=== PATIENT | female | born 1940 | race Two or more races ===

== ENCOUNTER 2022-07-03 12:21 | Inpatient (IN) | payer OTHER ==
[2022-07-03] VITALS (12 sets, daily range): BP systolic 95–144; BP diastolic 40–67
[~2022-07-03] VITALS: Ht 167.6 cm; Wt 77.6 kg
--- NOTE | 2022-07-03 12:25 | NUR ---
[id number] found unresponsive, pulseless. CPR initiated well logging mud analysis captain per report. PLACED IN BED, NOT RESPONDING TO VERBAL-PAINFUL STIMULI, MD AT BEDSIDE FOR EVAL. RESP. TECH AT BEDSIDE ATTACHED TO VENTILATOR WITH SETTING AC/VC FIO2-100%, VT-500, RATE-16, PEEP-5 SATURATING TAT 100%.
[2022-07-03] MEDS ORDERED: NALOXONE PREFILLED SYRINGE 2 MG/2 ML SYRINGE ONE (12:26)
--- NOTE | 2022-07-03 12:29 | NUR ---
narcan 2mg given ivp per dr culver verbal order.
[2022-07-03] MEDS ORDERED: IV NS 0.9% 1,000 ML BAG IV ONE (12:30)
--- NOTE | 2022-07-03 12:44 | NUR ---
[employer] at bedside
--- NOTE | 2022-07-03 12:46 | NUR ---
MOVE SHEET SUBMITTED.
[2022-07-03] MEDS ORDERED: NALOXONE PREFILLED SYRINGE 2 MG/2 ML SYRINGE IV ONE (13:00)
[2022-07-03 13:04] LABS: BASOPHILS % (AUTO) 0.3 % (0.0-2.0); EOSINOPHILS % (AUTO) 1.9 % (0.0-6.0); HEMATOCRIT 30 % (33-45); HEMOGLOBIN 9.3 g/dL (11.5-14.8); LYMPHOCYTES # (AUTO) 2.4 K/uL (0.8-4.8); LYMPHOCYTES % (AUTO) 24.3 % (20.0-44.0); MEAN CORPUSCULAR HGB CONC 31 g/dl (31.0-36.0); MEAN CORPUSCULAR VOLUME 91 fL (82-100); MONOCYTES # (AUTO) 0.4 K/uL (0.1-1.30); MONOCYTES % (AUTO) 3.9 % (2.0-12.0); NEUTROPHILS # (AUTO) 6.8 K/uL (1.8-8.9); NEUTROPHILS % (AUTO) 69.6 % (43.0-81.0); PLATELET COUNT (AUTO) 327 K/uL (150-450); RED BLOOD CELL COUNT(AUTO) 3.28 MIL/uL (4.0-5.2); WHITE BLOOD COUNT (AUTO) 9.7 K/uL (4.3-11.0)
[2022-07-03 13:16] LABS: SERUM AMMONIA 50 umol/L (11-32)
[2022-07-03 13:19] LABS: CARBON DIOXIDE 29 mmol/L (21-32); CHLORIDE 104 mmol/L (98-107); CREATININE 0.8 mg/dL (0.6-1.3); GLUCOSE 169 mg/dL (74-106); POTASSIUM 4.4 mmol/L (3.5-5.1); SODIUM SERUM 140 mmol/L (136-145); UREA NITROGEN, BLOOD 24 mg/dL (7-18)
--- NOTE | 2022-07-03 13:19 | NUR ---
PATIENT CAME IN BEEN BAGGED BY THE EMERGENCY UNIT WITH SOB. PATIENT IS PLACED ON THE VENTILATOR WITH SETTINGS OF AC 16, 500, 100%, +5 PER DOCTOR ORDER. PATIENT CAME IN WITH TRACH AND IN PLACE. Addendum: 07/03/22 at 1324 by ZAIRA BLANCO RT Amended: Links added.
--- NOTE | 2022-07-03 13:24 | NUR ---
TROP 229
[2022-07-03 13:26] LABS: ALANINE AMINOTRANSFERASE 111 U/L (12-78); ALBUMIN 1.5 g/dL (3.4-5.0); ALKALINE PHOSPHATASE 219 U/L (46-116); ASPARTATE AMINOTRANSFERASE 122 U/L (15-37); BILIRUBIN,DIRECT 0.2 mg/dL (0.0-0.2); BILIRUBIN,TOTAL 0.3 mg/dL (0.2-1.0); TOTAL PROTEIN, SERUM 5.9 g/dL (6.4-8.2)
[2022-07-03 13:27] LABS: ALCOHOL, BLOOD < 3 mg/dL (0-0)
[2022-07-03 13:29] LABS: THYROID STIMULATING HORMONE 1.544 uIU/mL (0.358-3.74)
--- NOTE | 2022-07-03 13:35 | NUR ---
URINE SAMPLE SENT TO LAB
--- NOTE | 2022-07-03 13:45 | NUR ---
Picc line RN eta [id number]
--- NOTE | 2022-07-03 13:55 | NUR ---
SWAB FOR COVID19 SENT TO LAB
[2022-07-03 14:00] LABS: ABG BASE EXCESS 4.6 mmol/L; ABG PCO2 41.9 mmHg (35.0-45.0); ABG PH 7.456 (7.350-7.450); ABG PO2 324.4 mmHg (75.0-100.0); COHb 0.3 % (0.5-1.5); MetHb 0.3 % (0.0-1.5); O2Hb 98.8 % (94.0-97.0); PEEP,BG 5 cm H2O; SITE, ABG Left Radial; VT, ABG 500 mL
--- NOTE | 2022-07-03 14:08 | NUR ---
BILLIE FROM [facility] [phone]
[2022-07-03] MEDS ORDERED: NOREPINEPHRINE 8 MG in IV NS 0.9% 242 ML IV PRN (14:30)
[2022-07-03] MEDS ORDERED: IV NS 0.9% 500 ML BAG IV ONE (14:30)
[2022-07-03 14:31] LABS: BILIRUBIN,URINE NEGATIVE (NEGATIVE); COLOR,URINE YELLOW (YELLOW); LEUKOCYTE ESTERASE ,URINE 3+ (NEGATIVE); NITRITE, URINE NEGATIVE (NEGATIVE); PROTEIN,URINE 1+ mg/dl (NEGATIVE); UGLUCOSE NEGATIVE (NEGATIVE); UROBILINOGEN,URINE 0.2 EU/dL (0.2)
[2022-07-03] MEDS ORDERED: VANCOMYCIN 1 GM in IV D5W 250 ML IV ONE (15:30)
[2022-07-03] MEDS ORDERED: CEFEPIME 1 GM in IV D5W 50 ML IV ONE (15:30)
[2022-07-03 15:40] LABS: RBC,URINE 51-80 /HPF (0-2)
--- NOTE | 2022-07-03 15:40 | NUR ---
GOT BED 253
[2022-07-03 15:42] LABS: BACTERIA,URINE 3+ /HPF (None Seen); FINE GRANULAR CASTS,URINE Few /LPF (None Seen); SQUAMOUS EPITHELIAL CELL,UR 0-2 /HPF (None Seen); WBC,URINE 81-100 /HPF (0-3); YEAST,URINE Many /HPF (None Seen)
--- NOTE | 2022-07-03 16:50 | NUR ---
REPORT GIVEN TO AUGUSTINE RN ROOM 253 ICU FOR LELA
[2022-07-03] MEDS ORDERED: Z GUARD REMEDY 4 OZ OINT TP PRN (17:00)
[2022-07-03] MEDS ORDERED: MAGNESIUM HYDROXIDE 30 ML UDC PO PRN (17:00)
[2022-07-03] MEDS ORDERED: MAG HYDROX/AL HYDROX/SIMETH 30 ML UDC PO PRN (17:00)
[2022-07-03] MEDS ORDERED: ZOLPIDEM TARTRATE 5 MG TABLET PO PRN (17:00)
[2022-07-03] MEDS ORDERED: ACETAMINOPHEN 325 MG TABLET PO PRN (17:00)
[2022-07-03] MEDS ORDERED: ONDANSETRON HCL/PF 4 MG/2 ML VIAL IVP PRN (17:00)
[2022-07-03] MEDS: IV NS 0.9% 1,000 ML IV PRN (17:24)
[2022-07-03] MEDS: ENOXAPARIN SODIUM 40 MG/0.4 ML DISP.SYRIN SQ SCH (17:24)
--- NOTE | 2022-07-03 18:00 | NUR ---
PT ARRIVED IN ICU TO ROOM 253 FROM ER AT 1702 VIA GURNEY. PT SETTLED IN ROOM. WOUND PICS TAKEN. PT IS OBTUNDED, EYES OPEN NOT TRACKING OR FOLLOWING COMMANDS.
[2022-07-03] MEDS: NOREPINEPHRINE 8 MG in IV NS 0.9% 242 ML IV PRN (18:20)
[2022-07-03] MEDS ORDERED: PHARMACY TO CHANGE PO MEDS TO GT/NG XX PRN (18:30)
--- NOTE | 2022-07-03 18:31 | NUR ---
ICU/RN CRITICAL LAB VALUE OF TROPONIN 497 REPORTED TO PRIMARY RN YUMI.
[2022-07-03] MEDS ORDERED: FLUCONAZOLE IN NS 100 ML IV ONE (21:50)
[2022-07-03] MEDS: FLUCONAZOLE IN NS 100 MG in PREMIX 1 EA IV SCH ×2 (22:00)
[2022-07-04] VITALS (25 sets, daily range): BP systolic 98–157; BP diastolic 40–99
[2022-07-04] MEDS: IV NS 0.9% 1,000 ML IV PRN ×3 (02:03→18:40)
[2022-07-04] MEDS: CEFEPIME 2 GM in IV D5W 100 ML IV SCH ×2 (04:00→15:14)
[2022-07-04 05:05] LABS: BASOPHILS % (AUTO) 0.1 % (0.0-2.0); HEMATOCRIT 26 % (33-45); HEMOGLOBIN 8.2 g/dL (11.5-14.8); LYMPHOCYTES # (AUTO) 1.4 K/uL (0.8-4.8); LYMPHOCYTES % (AUTO) 15.5 % (20.0-44.0); MEAN CORPUSCULAR HGB CONC 32 g/dl (31.0-36.0); MEAN CORPUSCULAR VOLUME 89 fL (82-100); MONOCYTES # (AUTO) 0.3 K/uL (0.1-1.30); MONOCYTES % (AUTO) 3.3 % (2.0-12.0); NEUTROPHILS # (AUTO) 7.2 K/uL (1.8-8.9); NEUTROPHILS % (AUTO) 81.1 % (43.0-81.0); PLATELET COUNT (AUTO) 316 K/uL (150-450); RED BLOOD CELL COUNT(AUTO) 2.86 MIL/uL (4.0-5.2); WHITE BLOOD COUNT (AUTO) 8.9 K/uL (4.3-11.0)
[2022-07-04 05:28] LABS: ALANINE AMINOTRANSFERASE 83 U/L (12-78); ALKALINE PHOSPHATASE 167 U/L (46-116); ASPARTATE AMINOTRANSFERASE 66 U/L (15-37); BILIRUBIN,DIRECT 0.2 mg/dL (0.0-0.2); BILIRUBIN,TOTAL 0.3 mg/dL (0.2-1.0); CALCIUM, SERUM 7.7 mg/dL (8.5-10.1); CARBON DIOXIDE 28 mmol/L (21-32); CHLORIDE 107 mmol/L (98-107); CREATININE 0.4 mg/dL (0.6-1.3); GLUCOSE 115 mg/dL (74-106); MAGNESIUM 1.9 mg/dL (1.8-2.4); PHOSPHORUS 3.3 mg/dL (2.5-4.9); SODIUM SERUM 141 mmol/L (136-145); TOTAL PROTEIN, SERUM 5.2 g/dL (6.4-8.2); UREA NITROGEN, BLOOD 22 mg/dL (7-18)
[2022-07-04 05:41] LABS: ALBUMIN 1.3 g/dL (3.4-5.0)
[2022-07-04] MEDS ORDERED: PANTOPRAZOLE 40 MG TABLET.DR PO SCH (07:30)
--- NOTE | 2022-07-04 07:30 | NUR ---
RN OPENING NOTE PT RECEIVED IN BED AND ON MECHANICAL VENT WITH ALL PRESCRIBED SETTINGS TOLERATING WELL O2 SAT 100% NO SIGNS OF DISTRESS OR LABORED BREATHING. PT IS OBTUNDED WITH EYES OPEN AND DOES NOT TRACK. PEG TUBE IS IN PLACE CLAMED AT THIS TIME. FC IS IN PLACE WITH URINE DRAINING TO GRAVITY: ETHEL COLORED. PT IS NPO AT THIS TIME. IV ACCESS R UA PICC TL AND R W 20G INFUSING WITH NS@125ML/HR. BED IS LOCKED IN LOWEST POSITION X2 BED RAILS UP AND ALL HOSPITAL SAFETY MEASURES ARE IN PLACE WILL CONTINUE TO MONITOR THIS SHIFT.
[2022-07-04] MEDS: PANTOPRAZOLE 40 MG/PACK PACK GT SCH (07:59)
[2022-07-04] MEDS: POTASSIUM CL. PREMIX PERIPHER. 50 ML IV SCH ×6 (07:59→13:17)
[2022-07-04] MEDS ORDERED: POLY15DR40 EACHEYE (08:20)
[2022-07-04] MEDS ORDERED: PHOS250T2 GT (08:20)
[2022-07-04] MEDS ORDERED: ACET650S26 GT (08:20)
[2022-07-04] MEDS ORDERED: ACET-2605 GT (08:20)
[2022-07-04] MEDS ORDERED: APIX2.5T GT (08:20)
[2022-07-04] MEDS ORDERED: DOCU-141 GT (08:20)
[2022-07-04] MEDS ORDERED: PANT40SU2 GT (08:20)
[2022-07-04] MEDS ORDERED: CHLO473M5 MM (08:20)
[2022-07-04] MEDS ORDERED: NA P133E RC (08:20)
[2022-07-04] MEDS ORDERED: IPRA4AER IH (08:20)
[2022-07-04] MEDS ORDERED: LORA-259 GT (08:20)
[2022-07-04] MEDS ORDERED: BISA10SU11 RC (08:20)
[2022-07-04] MEDS ORDERED: MENT71OI2 TP (08:20)
[2022-07-04] MEDS ORDERED: GLUC1KIT IM (08:20)
[2022-07-04] MEDS: IV NS 0.9% 250 ML IV PRN (09:09)
[2022-07-04 11:36] LABS: THYROID STIMULATING HORMONE 0.307 uIU/mL (0.358-3.74)
[2022-07-04] MEDS: VANCOMYCIN 1.25 GM in IV D5W 250 ML IV SCH (15:59)
[2022-07-04] MEDS: ENOXAPARIN SODIUM 40 MG/0.4 ML DISP.SYRIN SQ SCH (17:25)
--- NOTE | 2022-07-04 18:55 | NUR ---
RN CLOSING NOTE PT IN BED AND ON MECHANICAL VENT WITH ALL PRESCRIBED SETTINGS TOLERATING WELL O2 SAT 98% NO SIGNS OF DISTRESS OR LABORED BREATHING. PT IS OBTUNDED WITH EYES OPEN AND DOES NOT TRACK. PEG TUBE IS IN PLACE CLAMED AT THIS TIME. FC IS IN PLACE WITH URINE DRAINING TO GRAVITY: ETHEL COLORED -750ML. PT IS NPO AT THIS TIME. IV ACCESS R UA PICC TL AND R W 20G INFUSING WITH NS@125ML/HR. PT RECEIVED 60MEQ KCL REPLACEMENT THIS SHIFT. BED IS LOCKED IN LOWEST POSITION X2 BED RAILS UP AND ALL HOSPITAL SAFETY MEASURES ARE IN PLACE WILL ENDORSE TO SCIENTIST NURSE FOR LELA.
--- NOTE | 2022-07-04 19:48 | NUR ---
BALANCE WHEEL HAND FILER OPENING NOTES: RECEIVED PATIENT IN BED, OBTUNDED. ON TRACH TO MECHANICAL VENT SETTINGS: AC-16, TV- 500, FIO2-30%, PEEP-5. O2 SAT 94%. BREATHING EVEN AND UNLABORED. IV ACCESS R UA PICC AND RT WRIST 20G INTACT AND PATENT. INFUSING WITH NS@125ML/HR. GT TUBE IN PLACE CLAMPED AT THIS TIME. FERRERA CATHETER IN PLACE, DRAINING BY GRAVITY, NOTED ETHEL COLORED URINE. PT IS NPO EXCEPT MEDS AT THIS TIME. ALL SAFETY MEASURES IN PLACE. BED IN LOWEST POSITION AND LOCKED. SIDE RAILS UP X3. PLACE CALL LIGHT WITH IN REACH. WILL CONTINUE TO MONITOR
[2022-07-04] MEDS: FLUCONAZOLE IN NS 100 MG in PREMIX 1 EA IV SCH ×2 (20:08)
[2022-07-05] VITALS (78 sets, daily range): BP systolic 63–180; BP diastolic 35–103
[2022-07-05] MEDS: NOREPINEPHRINE 8 MG in IV NS 0.9% 242 ML IV PRN (01:38)
--- NOTE | 2022-07-05 01:52 | NUR ---
RN NOTES: PT'S BLOOD PRESSURE 63/35, PULSE-82. STARTED LEVOPHED AGAIN. PT TOLERATED WELL.
--- NOTE | 2022-07-05 02:20 | NUR ---
RN NOTES: PT'S BLOOD PRESSURE 71/41, PULSE- 91. LEVOPHED INCREASED TO 0.2 MCG/KG/MIN. WILL CONTINUE TO MONITOR
[2022-07-05] MEDS: IV NS 0.9% 1,000 ML IV PRN ×3 (03:13→21:45)
[2022-07-05] MEDS: CEFEPIME 2 GM in IV D5W 100 ML IV SCH (04:48)
[2022-07-05 04:50] LABS: BASOPHILS % (AUTO) 0.2 % (0.0-2.0); EOSINOPHILS % (AUTO) 2.7 % (0.0-6.0); HEMATOCRIT 28 % (33-45); HEMOGLOBIN 9.1 g/dL (11.5-14.8); LYMPHOCYTES # (AUTO) 1.1 K/uL (0.8-4.8); LYMPHOCYTES % (AUTO) 11.2 % (20.0-44.0); MEAN CORPUSCULAR HGB CONC 33 g/dl (31.0-36.0); MEAN CORPUSCULAR VOLUME 88 fL (82-100); MONOCYTES # (AUTO) 0.5 K/uL (0.1-1.30); MONOCYTES % (AUTO) 5.3 % (2.0-12.0); NEUTROPHILS # (AUTO) 7.6 K/uL (1.8-8.9); NEUTROPHILS % (AUTO) 80.6 % (43.0-81.0); PLATELET COUNT (AUTO) 391 K/uL (150-450); RED BLOOD CELL COUNT(AUTO) 3.16 MIL/uL (4.0-5.2); WHITE BLOOD COUNT (AUTO) 9.5 K/uL (4.3-11.0)
[2022-07-05 05:05] LABS: CALCIUM, SERUM 7.9 mg/dL (8.5-10.1); CARBON DIOXIDE 27 mmol/L (21-32); CHLORIDE 106 mmol/L (98-107); CREATININE 0.5 mg/dL (0.6-1.3); GLUCOSE 111 mg/dL (74-106); MAGNESIUM 1.6 mg/dL (1.8-2.4); POTASSIUM 3.2 mmol/L (3.5-5.1); SODIUM SERUM 139 mmol/L (136-145); UREA NITROGEN, BLOOD 16 mg/dL (7-18)
[2022-07-05] MEDS: IV NS 0.9% 250 ML IV PRN ×2 (06:43→22:30)
--- NOTE | 2022-07-05 06:52 | NUR ---
THERAPEUTIC ACTIVITIES SERVICES WORKER CLOSING NOTES: PATIENT IN BED, OBTUNDED. ON TRACH TO MECHANICAL VENT SETTINGS: AC-16, TV- 500, FIO2-50%, PEEP-5. O2 SAT 100%. IV ACCESS R UA PICC AND RT WRIST 20G INTACT AND PATENT. INFUSING WITH NS@125ML/HR AND LEVOPHED RUNNING AT 0.04 MCG/KG/MIN. PT TOLERATED WELL. GT TUBE IN PLACE CLAMPED. FERRERA CATHETER IN PLACE, DRAINING BY GRAVITY, ETHEL COLORED URINE NOTED. PT IS NPO EXCEPT MEDS. ALL DUE MEDS GIVEN ORDERED. ALL SAFETY MEASURES IN PLACE. BED IN LOWEST POSITION AND LOCKED. SIDE RAILS UP X3. PLACE CALL LIGHT WITH IN REACH. WILL ENDORSE TO MORNING SHIFT NURSE.
--- NOTE | 2022-07-05 07:05 | NUR ---
RN NOTES RECEIVED PATIENT ON BED, CONTINUOUS REPETITIVE FACIAL MOMENT NOTED , PT IS TRACH/ VENT DEPENDENT , TOLERATING VENT SETTING WELL, O2 SAT WNL, O2 SAT WNL, BREATHING EVEN AND UNLABORED. IV ACCESS R UA PICC AND RT WRIST 20G INTACT AND PATENT. INFUSING WITH NS@125ML/HR. GT TUBE IN PLACE CLAMPED AT THIS TIME. FERRERA CATHETER IN PLACE, DRAINING BY GRAVITY, NOTED ETHEL COLORED URINE. PT IS NPO EXCEPT MEDS AT THIS TIME. ALL SAFETY MEASURES IN PLACE. BED IN LOWEST POSITION AND LOCKED. SIDE RAILS UP X3. PLACE CALL LIGHT WITH IN REACH. WILL CONTINUE TO MONITOR
--- NOTE | 2022-07-05 07:16 | NUR ---
WOUND CARE CONSULT: PT PRESENTS WITH SACRAL SCARRING, REDNESS TO BUTTOCKS, ABDOMINAL CLOSED INCISIONS WITH JENNIE AND RETENTION SUTURES, LEFT BREAST RASH WITH MOISTURE ASSOCIATED OPEN SKIN, PERINEAL RASH/REDNESS AND LONG TOENAILS, ALL PRESENT ON ADMISSION. DR CRUZ CALLED FOR SURGICAL CONSULT. DISCUSSED SKIN PROTECTION WITH NURSING STAFF. FIRST STEP LOW AIRLOSS MATTRESS IS ON ORDER. MD IN AGREEMENT WITH PLAN OF CARE. Addendum: 07/05/22 at 0722 by ROSANA SELF WNDNU Amended: Links added.
[2022-07-05] MEDS: CLOTRIMAZOLE 1% 15 GM TUBE TP SCH ×2 (08:05→16:43)
[2022-07-05] MEDS: PANTOPRAZOLE 40 MG/PACK PACK GT SCH (08:05)
--- NOTE | 2022-07-05 08:52 | NUR ---
fio2 titrate down to 30% spo2 96% Addendum: 07/05/22 at 0853 by SALVATORE STERN RT Amended: Links added.
[2022-07-05] MEDS ORDERED: POTASSIUM CHLORIDE 20 MEQ POWDER PACKET NG SCH (09:30)
[2022-07-05] MEDS: Magnesium 1GM/D5W 100ML PREMIX 100 ML IV SCH ×2 (09:43→10:51)
--- NOTE | 2022-07-05 10:33 | NUR ---
wayne parker Addendum: 07/05/22 at 1034 by SALVATORE STERN RT Amended: Links added.
--- NOTE | 2022-07-05 11:18 | NUR ---
fio2 increased to 40% due to 91 to 93% spo2 Addendum: 07/05/22 at 1118 by SALVATORE STERN RT Amended: Links added.
[2022-07-05] MEDS ORDERED: BISACODYL SUPP (10 MG) 10 MG/SUPP.RECT SUPP.RECT RC PRN (12:30)
[2022-07-05] MEDS ORDERED: K PHOS NEUTRAL 250 MG TABLET GT PRN (12:30)
[2022-07-05] MEDS ORDERED: ACETAMINOPHEN 650 MG/20.3 ML UDC GT PRN ×2 (12:30→13:00)
[2022-07-05] MEDS ORDERED: NA PHOS,M-B/NA PHOS,DI-BA 1 EA ENEMA RC PRN (12:30)
[2022-07-05] MEDS ORDERED: LORAZEPAM 1 MG TABLET GT PRN (12:30)
[2022-07-05] MEDS ORDERED: Medication Not On Formulary EA (Ipratropium/Albuterol Sulfate (Combivent Respimat 20-100 IH PRN (12:30)
[2022-07-05] MEDS ORDERED: MAGNESIUM HYDROXIDE 30 ML UDC GT PRN (12:48)
[2022-07-05] MEDS ORDERED: POLYVINYL ALCOHOL 15 ML BOTTLE EACHEYE PRN (13:00)
[2022-07-05] MEDS ORDERED: IPRATROPIUM NEB FS 0.5 MG/2.5 ML AMPUL.NEB IH PRN (13:00)
[2022-07-05] MEDS ORDERED: ALBUTEROL FS 2.5 MG/0.5 ML VIAL.NEB NEB PRN (13:00)
--- NOTE | 2022-07-05 14:30 | NUR ---
RN NOTES ESVIN ([facility] ) STATED HE HAS DOPA FOR PT AND , HE WILL FAX IT TO [facility] SOON HE GETS HOME. NO CONSENT FOR CONTRAST CT YET .
[2022-07-05] MEDS: MEROPENEM 500 MG in IV NS 0.9% 50 ML IV SCH ×2 (15:10→21:29)
[2022-07-05] MEDS ORDERED: LEVETIRACETAM (500MG) 2,000 MG in IV NS 0.9% 100 ML IV ONE (16:00)
--- NOTE | 2022-07-05 16:00 | NUR ---
RN NOTES CALL MADE TO ESVIN REGARDING DPOA DOCUMENT , HE STATED WE IS NOT HOME YET . HE WILL FAX IT SIMA
[2022-07-05] MEDS: APIXABAN 2.5 MG TABLET GT SCH (16:39)
[2022-07-05] MEDS: CHLORHEXIDINE GLUCONATE 15 ML UDC MM SCH (16:39)
[2022-07-05] MEDS: ENOXAPARIN SODIUM 40 MG/0.4 ML DISP.SYRIN SQ SCH (16:42)
[2022-07-05] MEDS: DOCUSATE SODIUM LIQ 100 MG/10 ML UDC GT SCH (17:42)
[2022-07-05] MEDS: VANCOMYCIN 1.25 GM in IV D5W 250 ML IV SCH (17:42)
--- NOTE | 2022-07-05 18:00 | NUR ---
RN NOTE FAXED RECEIVED FROM ESVIN THAT IS A RECEIPT OF SOME SORT OF DOCUMENT WHICH IS NOT DPOA DOCUMENT , HE SAID THIS IS A ONLY PAPER HE HAS. DR PARMAR NOTIFIED. UNABLE TO FINE ANY FAMILY MEMBER.
--- NOTE | 2022-07-05 18:55 | NUR ---
RN NOTES RADIOLOGY NOTIFED REGARDING CT OF HEAD THAT HAS TO BE DONE. NO CONSENT FOR CT OF ABD WITH CONTRAST YET , DR. PARMAR AWARE
--- NOTE | 2022-07-05 19:00 | NUR ---
MAGISTERIAL DISTRICT JUDGE RECEIVED PT IN BED ATTACHED TO [facility] VENT WITH FF SETTINGS: TRACH AC16 TV500 FI02 40% PEEP0. TOLERATING WELL. NO ACUTE DISTRESS. IV ACCESS AT RIGHT ARM PICC LINE, RIGHT WIST #20, PATENT AND INFUSING NS AT 125ML/H. WITH PEG-TUBE, CLAMPED. NPO EXCEPT MEDS. FERRERA CATH DRAINING CLEAR YELLOW URINE. NOTED ABD SURGERY INCISION WOUND AND PERIANAL AREA FISTULA. FOR CT HEAD WO CONTRAST AND CT ABDOMEN W/WO - NO CONSENT SIGNED. WILL CALL RADIOLOGY FOR CT OF THE HEAD. CHARGE NURSE MADE AWARE. SAFETY MEASURES MAINTAINED. TURNED AND REPOSITIONED. KEPT COMFORTABLE. WILL CONT TO MONITOR.
[2022-07-05] MEDS: FLUCONAZOLE IN NS 100 MG in PREMIX 1 EA IV SCH ×2 (20:04)
--- NOTE | 2022-07-05 21:00 | NUR ---
TELESALES SPECIALIST RECEIVED CALL FROM MAGUI (RADIOLOGY) RE CT OF HEAD WO CONTRAST AND ABDOMEN W/WO CONTRAST CLARIFIED TO BE DONE TOGETHER TOMORROW IN AM ONCE WITH CONSENT PER JUAN ALLEN. INFORMED RADIOLOGY THAT CT OF THE HEAD WAS ORDERED STAT AND MUST BE DONE TONIGHT. CHARGE NURSE MADE AWARE. PATIENT WAS SENT DOWN TO RADIO FOR CT HEAD W/O CONTRAST WITH RN, ELECTRIC MOTORS SALESPERSON AND RT. TOLERATED PROC WELL. KEPT COMFORTABLE.
[2022-07-05] MEDS: LEVETIRACETAM (500MG) 1,000 MG in IV NS 0.9% 100 ML IV SCH (21:28)
[2022-07-06] VITALS (50 sets, daily range): BP systolic 106–160; BP diastolic 48–93
[2022-07-06 03:54] LABS: BASOPHILS % (AUTO) 0.3 % (0.0-2.0); EOSINOPHILS % (AUTO) 5.3 % (0.0-6.0); HEMATOCRIT 26 % (33-45); HEMOGLOBIN 8.5 g/dL (11.5-14.8); LYMPHOCYTES # (AUTO) 1.7 K/uL (0.8-4.8); MEAN CORPUSCULAR HGB CONC 33 g/dl (31.0-36.0); MEAN CORPUSCULAR VOLUME 88 fL (82-100); MONOCYTES # (AUTO) 0.5 K/uL (0.1-1.30); MONOCYTES % (AUTO) 6.7 % (2.0-12.0); NEUTROPHILS # (AUTO) 5.3 K/uL (1.8-8.9); NEUTROPHILS % (AUTO) 66.7 % (43.0-81.0); PLATELET COUNT (AUTO) 311 K/uL (150-450); WHITE BLOOD COUNT (AUTO) 7.9 K/uL (4.3-11.0)
[2022-07-06 04:27] LABS: CALCIUM, SERUM 7.8 mg/dL (8.5-10.1); CARBON DIOXIDE 26 mmol/L (21-32); CHLORIDE 107 mmol/L (98-107); CREATININE 0.5 mg/dL (0.6-1.3); GLUCOSE 91 mg/dL (74-106); MAGNESIUM 1.8 mg/dL (1.8-2.4); PHOSPHORUS 2.9 mg/dL (2.5-4.9); SODIUM SERUM 139 mmol/L (136-145); UREA NITROGEN, BLOOD 10 mg/dL (7-18)
[2022-07-06] MEDS: MEROPENEM 500 MG in IV NS 0.9% 50 ML IV SCH ×3 (05:14→20:38)
--- NOTE | 2022-07-06 07:03 | NUR ---
WOUND CARE: RECEIVED CONSULT FOR OPENING AT PERIANAL AREA. DEFER TO PMD FOR POSSIBLE GENERAL SURGERY CONSULT. CONTINUE ALL SKIN PROTECTION MEASURES. DISCUSSED WITH NURSING STAFF.
--- NOTE | 2022-07-06 07:05 | NUR ---
RN NOTES RECEIVED PATIENT ON BED, TRACH/ VENT DEPENDENT , TOLERATING VENT SETTING WELL, O2 SAT WNL, ON TELE HR IN LAYO 40'S, BREATHING EVEN AND UNLABORED. IV ACCESS R UA PICC AND RT WRIST 20G INTACT AND PATENT. INFUSING WITH NS@125ML/HR. GT TUBE IN PLACE CLAMPED AT THIS TIME. FERRERA CATHETER IN PLACE, DRAINING BY GRAVITY, NOTED ETHEL COLORED URINE. PT IS NPO EXCEPT MEDS AT THIS TIME. ALL SAFETY MEASURES IN PLACE. BED IN LOWEST POSITION AND LOCKED. SIDE RAILS UP X3. PLACE CALL LIGHT WITHIN EASY REACH. WILL CONTINUE TO MONITOR
[2022-07-06] MEDS: PANTOPRAZOLE 40 MG/PACK PACK GT SCH ×2 (08:35→08:38)
[2022-07-06] MEDS: CHLORHEXIDINE GLUCONATE 15 ML UDC MM SCH ×2 (08:35→16:09)
[2022-07-06] MEDS: APIXABAN 2.5 MG TABLET GT SCH ×2 (08:37→16:07)
[2022-07-06] MEDS: LEVETIRACETAM (500MG) 1,000 MG in IV NS 0.9% 100 ML IV SCH ×2 (08:38→20:38)
[2022-07-06] MEDS: CLOTRIMAZOLE 1% 15 GM TUBE TP SCH ×2 (08:39→16:10)
[2022-07-06] MEDS: IV NS 0.9% 1,000 ML IV PRN ×2 (08:49→17:32)
[2022-07-06] MEDS ORDERED: POTASSIUM CHLORIDE 20 MEQ POWDER PACKET GT SCH (09:30)
[2022-07-06] MEDS ORDERED: IOHEXOL-300 100 ML VIAL IV ONE (10:48)
[2022-07-06] MEDS ORDERED: IV NS 0.9% 250 ML IV ONE (10:49)
--- NOTE | 2022-07-06 14:57 | NUR ---
SS Note: CHANTALE was notified by Hayden from [facility] to fax clinicals including H&P, tox screen, COVID test taken within last 24 hrs, and medical clearance note for possible psychiatric admission. CHANTALE discussed this with pt.'s nurse, Vanesa. Vanesa stated she will relay information to SPORTS TEACHERKianna. CHANTALE will remain available as needed. Addendum: 07/06/22 at 1501 by JUANCARLOS KENYON Disregard note for different patient
--- NOTE | 2022-07-06 15:04 | NUR ---
SS note: CHANTALE received call from pt.s' nurseBrunilda who is requesting verification of decision maker for this patient to provide informed consent. CHANTALE called the pt.s' facility: [facility] [phone] and they stated that the pt.'s friend, Shahab [phone] and his son, Evan (who calls the pt. meka)are the only point of contact for patient. Facility states they have no conservatorship paperwork, advanced directive or POLST for this pt. CHANTALE called the pt.'s friend, Shahab [phone] to gather collateral information and left voicemail with call back number. Per nurse, Shahab has been asked to provide documents to [facility] which give him legal right to make medical decisions on behalf of pt. and he has been unable to provide such documents. Two medical doctors may consent to treatment if legal decision maker is not available and if it is a medical necessity. CHANTALE discussed with nurseBrunilda.
[2022-07-06] MEDS: VANCOMYCIN 1.25 GM in IV D5W 250 ML IV SCH (16:05)
[2022-07-06] MEDS: ENOXAPARIN SODIUM 40 MG/0.4 ML DISP.SYRIN SQ SCH (16:10)
[2022-07-06] MEDS: DOCUSATE SODIUM LIQ 100 MG/10 ML UDC GT SCH (17:47)
--- NOTE | 2022-07-06 18:40 | NUR ---
RN NOTES TRACH CARE DONE PRN, TOLERATING VENT SETTING WELL, ON TELE SR HR IN 60'S, FERRERA DRAINING TO GRAVITY , IV SITE CDI, NS AT 125CC/HR RUNNING , SR UP x3, CALL LIGHT WITHIN EASY REACH, BED LOCKED AND IN LOWEST POSITION, WILL ENDORSE TO EQUINE INTERN NURSE FOR CONTINUITY OF CARE .
[2022-07-06] MEDS: FLUCONAZOLE IN NS 100 MG in PREMIX 1 EA IV SCH ×2 (19:19)
--- NOTE | 2022-07-06 21:30 | NUR ---
CLINICAL REGISTERED NURSE RECEIVED PT IN BED ON TRACH ATTACHED TO [facility] VENT WITH FF SETTINGS: AC16 TV500 FI02 30% PEEP0. TOLERATING WELL. NO ACUTE DISTRESS. IV ACCESS AT RIGHT ARM PICC LINE, PATENT AND INFUSING NS AT 125ML/H. WITH PEG-TUBE, CLAMPED. NPO EXCEPT MEDS. FERRERA CATH DRAINING ETHEL URINE. NOTED ABD SURGERY INCISION WOUND AND PERIANAL AREA FISTULA. SAFETY MEASURES MAINTAINED. TURNED AND REPOSITIONED. DUE MEDS GIVEN. KEPT COMFORTABLE. WILL CONT TO MONITOR.
[2022-07-07] VITALS (48 sets, daily range): BP systolic 116–159; BP diastolic 47–84
[2022-07-07] MEDS: IV NS 0.9% 1,000 ML IV PRN ×2 (04:54→12:21)
[2022-07-07] MEDS: MEROPENEM 500 MG in IV NS 0.9% 50 ML IV SCH ×3 (05:07→20:53)
[2022-07-07 05:28] LABS: CALCIUM, SERUM 7.9 mg/dL (8.5-10.1); CARBON DIOXIDE 24 mmol/L (21-32); CHLORIDE 108 mmol/L (98-107); CREATININE 0.5 mg/dL (0.6-1.3); GLUCOSE 82 mg/dL (74-106); POTASSIUM 3.1 mmol/L (3.5-5.1); SODIUM SERUM 139 mmol/L (136-145); UREA NITROGEN, BLOOD 10 mg/dL (7-18)
--- NOTE | 2022-07-07 06:16 | NUR ---
CASH VAN SALESPERSON NOTED HEMATURIA. ORDERED CBC STAT. CHARGE NURSE MADE AWARE
[2022-07-07 08:01] LABS: BASOPHILS # (AUTO) 0.1 K/uL (0.0-0.2); BASOPHILS % (AUTO) 0.5 % (0.0-2.0); EOSINOPHILS % (AUTO) 5.1 % (0.0-6.0); HEMATOCRIT 32 % (33-45); HEMOGLOBIN 10.2 g/dL (11.5-14.8); LYMPHOCYTES # (AUTO) 3.5 K/uL (0.8-4.8); LYMPHOCYTES % (AUTO) 35.6 % (20.0-44.0); MEAN CORPUSCULAR HGB CONC 32 g/dl (31.0-36.0); MEAN CORPUSCULAR VOLUME 89 fL (82-100); MONOCYTES % (AUTO) 9.7 % (2.0-12.0); NEUTROPHILS # (AUTO) 4.9 K/uL (1.8-8.9); NEUTROPHILS % (AUTO) 49.1 % (43.0-81.0); PLATELET COUNT (AUTO) 308 K/uL (150-450)
--- NOTE | 2022-07-07 08:15 | NUR ---
BEDSIDE REPORT GIVEN BY RNLENA DERAS FOR CONTINUITY OF CARE.
[2022-07-07] MEDS: CHLORHEXIDINE GLUCONATE 15 ML UDC MM SCH ×2 (09:05→16:17)
[2022-07-07] MEDS: PANTOPRAZOLE 40 MG/PACK PACK GT SCH (09:09)
[2022-07-07] MEDS: LEVETIRACETAM (500MG) 1,000 MG in IV NS 0.9% 100 ML IV SCH (09:10)
[2022-07-07] MEDS: POTASSIUM CHLORIDE 20 MEQ POWDER PACKET NG SCH ×5 (09:10→13:35)
[2022-07-07] MEDS: APIXABAN 2.5 MG TABLET GT SCH ×2 (09:14→16:19)
[2022-07-07] MEDS: CLOTRIMAZOLE 1% 15 GM TUBE TP SCH ×2 (09:37→16:17)
[2022-07-07] MEDS: IV NS 0.9% 250 ML IV PRN (09:39)
[2022-07-07] MEDS: IV D5/ 0.9% NACL 1,000 ML IV PRN (13:36)
[2022-07-07] MEDS ORDERED: MAG HYDROX/AL HYDROX/SIMETH 30 ML UDC GT PRN (13:59)
[2022-07-07] MEDS: VANCOMYCIN 1.25 GM in IV D5W 250 ML IV SCH (16:22)
--- NOTE | 2022-07-07 16:37 | NUR ---
DR DIAZ SEEN PT. NOW.
[2022-07-07] MEDS: DOCUSATE SODIUM LIQ 100 MG/10 ML UDC GT SCH (17:54)
[2022-07-07] MEDS: ENOXAPARIN SODIUM 40 MG/0.4 ML DISP.SYRIN SQ SCH (17:55)
[2022-07-07] MEDS: FLUCONAZOLE IN NS 100 MG in PREMIX 1 EA IV SCH ×2 (19:55)
[2022-07-07] MEDS: KEPPRA 1000 MG in IV NS 100 ML IV SCH (20:53)
[2022-07-07] MEDS ORDERED: LEVETIRACETAM (500MG) 1,000 MG in IV NS 0.9% 100 ML IV SCH (21:00)
[2022-07-08] VITALS (53 sets, daily range): BP systolic 113–157; BP diastolic 51–92
[2022-07-08] MEDS: IV D5/ 0.9% NACL 1,000 ML IV PRN ×3 (02:10→19:51)
[2022-07-08 04:04] LABS: CALCIUM, SERUM 7.8 mg/dL (8.5-10.1); CARBON DIOXIDE 23 mmol/L (21-32); CHLORIDE 108 mmol/L (98-107); CREATININE 0.5 mg/dL (0.6-1.3); GLUCOSE 109 mg/dL (74-106); POTASSIUM 3.3 mmol/L (3.5-5.1); SODIUM SERUM 140 mmol/L (136-145); UREA NITROGEN, BLOOD 8 mg/dL (7-18)
[2022-07-08] MEDS: MEROPENEM 500 MG in IV NS 0.9% 50 ML IV SCH ×3 (05:19→21:38)
[2022-07-08] MEDS: IV NS 0.9% 250 ML IV PRN (05:31)
--- NOTE | 2022-07-08 06:35 | NUR ---
BOARD MACHINE SET UP OPERATOR PT IN BED ON TRACH ATTACHED TO [facility] VENT WITH FF SETTINGS: AC16 TV500 FI02 30% PEEP0. TOLERATING WELL. NO ACUTE DISTRESS. IV ACCESS AT RIGHT ARM PICC LINE, PATENT AND INFUSING D5NS AT 100ML/H. WITH PEG-TUBE, CLAMPED. NPO EXCEPT MEDS. FERRERA CATH DRAINING RED COLORED URINE. NOTED ABD SURGERY INCISION WOUND AND PERIANAL AREA FISTULA. SAFETY MEASURES MAINTAINED. TURNED AND REPOSITIONED. DUE MEDS GIVEN. KEPT COMFORTABLE.
--- NOTE | 2022-07-08 07:10 | NUR ---
MARKETING SERVICES MANAGER OPENING NOTE: RECEIVED PT. IN BED, OBTUNDED, MOVES EYELIDS TO PAINFUL STIMULI. VENT/TRACH - SHILEY# 6 XLT; AC - 16; VT - 500; FIO2 - 30%; PEEP - 0. NO S/S OF RESPIRATORY DISTRESS HORIZONTAL BORING MILL OPERATOR READS SINUS WES AT THIS TIME. BP STABLE. NOTED TO HAVE MIDLINE ABDOMINAL INCISION WITH JENNIE, WOUND C/D/I. 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 HOSPITALIST AWARE, WAITING FOR SURGICAL CONSULT. WILL DO WOUND TREATMENT/SKIN PRECAUTIONS ORDERED. HAS PEG TUBE, CLAMPED AT THIS TIME DUE TO PERIRECTAL FISTULA. NO GASTRIC RESIDUAL NOTED. HAS FERRERA CATH, DRAINING CLEAR YELLOW URINE, BAG BELOW BLADDER. IV ACCESS ON ISA PICC LINE, WITH D5 NS RUNNING AT 100 ML/HR. IV SITE DRESSING C/D/I WITH NO S/S OF INFILTRATION. SAFETY MEASURES IN PLACE: BED IN LOWEST AND LOCKED POSITION, HOB ELEVATED AT 30 DEGREES, BED ALARM ON, CALL LIGHT WITHIN REACH, SIDE RAILS UP X2. WILL TURN AND REPOSITION IN BED AT LEAST Q2H. WILL CONTINUE TO MONITOR PT. FOR ANY CHANGES.
[2022-07-08 07:42] LABS: BASOPHILS # (AUTO) 0.1 K/uL (0.0-0.2); BASOPHILS % (AUTO) 0.9 % (0.0-2.0); EOSINOPHILS % (AUTO) 6.8 % (0.0-6.0); HEMATOCRIT 30 % (33-45); HEMOGLOBIN 9.4 g/dL (11.5-14.8); LYMPHOCYTES # (AUTO) 1.8 K/uL (0.8-4.8); LYMPHOCYTES % (AUTO) 23.8 % (20.0-44.0); MEAN CORPUSCULAR HGB CONC 32 g/dl (31.0-36.0); MEAN CORPUSCULAR VOLUME 89 fL (82-100); MONOCYTES # (AUTO) 0.6 K/uL (0.1-1.30); MONOCYTES % (AUTO) 7.5 % (2.0-12.0); NEUTROPHILS # (AUTO) 4.5 K/uL (1.8-8.9); PLATELET COUNT (AUTO) 329 K/uL (150-450); RED BLOOD CELL COUNT(AUTO) 3.33 MIL/uL (4.0-5.2); WHITE BLOOD COUNT (AUTO) 7.4 K/uL (4.3-11.0)
[2022-07-08] MEDS ORDERED: ZOLPIDEM TARTRATE 5 MG TABLET GT PRN (07:45)
[2022-07-08] MEDS ORDERED: POTASSIUM CHLORIDE 20 MEQ POWDER PACKET GT ONE (08:00)
[2022-07-08] MEDS: CLOTRIMAZOLE 1% 15 GM TUBE TP SCH ×2 (09:36→17:55)
[2022-07-08] MEDS: APIXABAN 2.5 MG TABLET GT SCH ×2 (09:36→17:56)
[2022-07-08] MEDS: PANTOPRAZOLE 40 MG/PACK PACK GT SCH (09:36)
[2022-07-08] MEDS: CHLORHEXIDINE GLUCONATE 15 ML UDC MM SCH ×2 (09:37→17:55)
[2022-07-08] MEDS: LEVETIRACETAM (500MG) 500 MG in IV NS 0.9% 100 ML IV SCH (09:43)
[2022-07-08 10:34] LABS: IRON, SERUM 25 ug/dl (50-175); TOTAL IRON BINDING CAPACITY 141 ug/dl (250-450)
[2022-07-08 10:48] LABS: FERRITIN 174 ng/mL (8-388)
[2022-07-08] MEDS: VANCOMYCIN 1.25 GM in IV D5W 250 ML IV SCH (16:51)
[2022-07-08] MEDS: DOCUSATE SODIUM LIQ 100 MG/10 ML UDC GT SCH (17:55)
--- NOTE | 2022-07-08 19:10 | NUR ---
BUSINESS DATA ANALYST CLOSING NOTE: PT. REMAINS IN BED, OBTUNDED, MOVES EYELIDS TO PAINFUL STIMULI. VENT/TRACH - SHILEY# 6 XLT; AC - 16; VT - 500; FIO2 - 30%; PEEP - 0. NO S/S OF RESPIRATORY DISTRESS MAGNETO REPAIRER READS SINUS WES THIS SHIFT. BP STABLE. WOUND TREATMENT/SKIN PRECAUTIONS DONE ORDERED. STILL WAITING FOR SURGERY CONSULT. PEG TUBE STILL CLAMPED AT THIS TIME DUE TO PERIRECTAL FISTULA. NO GASTRIC RESIDUAL NOTED. FERRERA CATH DRAINED 1,600 ML CLEAR YELLOW URINE THIS SHIFT. IV ACCESS ON ISA PICC LINE, WITH D5 NS RUNNING AT 100 ML/HR. IV SITE DRESSING C/D/I WITH NO S/S OF INFILTRATION. SAFETY MEASURES MAINTAINED: BED IN LOWEST AND LOCKED POSITION, HOB ELEVATED AT 30 DEGREES, BED ALARM ON, CALL LIGHT WITHIN REACH, SIDE RAILS UP X2. TURNED AND REPOSITIONED IN BED AT LEAST Q2H. ENDORSED CONTINUITY OF CARE TO HEM MARKER NATALY MCGHEE.
[2022-07-08] MEDS: FLUCONAZOLE IN NS 100 MG in PREMIX 1 EA IV SCH ×2 (19:28)
--- NOTE | 2022-07-08 20:03 | NUR ---
RECEIVED PT TRACH ON VENT. NO RESP DISTRESS NOTED. SX'D SMALL AMT OF THIN WHITE SECRETIONS. PT HAS SILVERIO 6XLT TRACH. VENT ALARMS SET AND AUDIBLE. CONTINUE TO MONITOR. Addendum: 07/08/22 at 2004 by CHRISTY DOCKERY RT Amended: Links added.
--- NOTE | 2022-07-08 20:30 | NUR ---
ICU/SALES ACTIVITY MANAGER SURGEON MICKEY CAME TO SEE PT ABOUT ANAL FISTULA, PT DOES HAVE ONE. SAID TUESDAY, JAUNARY 30 IS GOOD FOR HIM. HE WAS CALLING PRIMARY DR TO SET THIS UP. NO NEW ORDERS WAS SEEN.
--- NOTE | 2022-07-08 20:45 | NUR ---
ICU/MATCHBOOK MAKER ID ALFREDO ROBLERO CAME TO SEE THIS PT, SPOKE TO HIM ABOUT STARTING FEEDING. SURGEON SAID OK TO START FEEDING. NO NEW ORDERS RECEIVED FROM ID ON THIS PT.
[2022-07-08] MEDS: KEPPRA 1000 MG in IV NS 100 ML IV SCH (21:05)
--- NOTE | 2022-07-08 21:40 | NUR ---
ICU/PUBLIC HEALTH INSPECTOR PT'S PHU CAME TO SEE PT, ASKED ABOUT UPDATES THEN TOLD HIME ABOUT THE SURGERY TO FIX THE FISTULA. ASKED IF HE WOULD SIGN THIS, HE SAID OK. PHU NAME IS ESVIN [phone], HOWEVER DR AREVALO DID NOT ASK FOR THE CONSENT.
[2022-07-09] VITALS (30 sets, daily range): BP systolic 112–155; BP diastolic 45–79
[2022-07-09] MEDS: MEROPENEM 500 MG in IV NS 0.9% 50 ML IV SCH ×3 (04:37→21:03)
[2022-07-09 04:48] LABS: CALCIUM, SERUM 7.8 mg/dL (8.5-10.1); CARBON DIOXIDE 23 mmol/L (21-32); CREATININE 0.5 mg/dL (0.6-1.3); GLUCOSE 106 mg/dL (74-106); UREA NITROGEN, BLOOD 7 mg/dL (7-18)
[2022-07-09 05:04] LABS: CHLORIDE 110 mmol/L (98-107); SODIUM SERUM 141 mmol/L (136-145)
[2022-07-09 05:28] LABS: POTASSIUM 2.8 mmol/L (3.5-5.1)
--- NOTE | 2022-07-09 06:37 | NUR ---
ICU/LABEL DRIER CALLED DAYTIME CAREGIVER KINZA MANY TIMES HOWEVER NO CALL BACK FOR CRITICAL LAB VALUE OF POTASSIUM 2.8
--- NOTE | 2022-07-09 07:10 | NUR ---
CLOTH PRINTING BACK TENDER OPENING NOTE: RECEIVED PT. IN BED, OBTUNDED, MOVES EYELIDS TO PAINFUL STIMULI. VENT/TRACH - SHILEY# 6 XLT; AC - 16; VT - 500; FIO2 - 30%; PEEP - 0. NO S/S OF RESPIRATORY DISTRESS NURSING ASSOCIATE READS SINUS WES AT THIS TIME. BP STABLE. NOTED TO HAVE MIDLINE ABDOMINAL INCISION WITH JENNIE, WOUND C/D/I. 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 SURGICAL CONSULT DONE BY DR. AREVALO LAST NIGHT. WILL DO WOUND TREATMENT/SKIN PRECAUTIONS ORDERED. HAS PEG TUBE, CLAMPED AT THIS TIME DUE TO PERIRECTAL FISTULA. NO GASTRIC RESIDUAL NOTED. HAS FERRERA CATH, DRAINING CLEAR YELLOW URINE, BAG BELOW BLADDER. IV ACCESS ON ISA PICC LINE, WITH D5 NS RUNNING AT 100 ML/HR. IV SITE DRESSING C/D/I WITH NO S/S OF INFILTRATION. SAFETY MEASURES IN PLACE: BED IN LOWEST AND LOCKED POSITION, HOB ELEVATED AT 30 DEGREES, BED ALARM ON, CALL LIGHT WITHIN REACH, SIDE RAILS UP X2. WILL TURN AND REPOSITION IN BED AT LEAST Q2H. WILL CONTINUE TO MONITOR PT. FOR ANY CHANGES.
[2022-07-09] MEDS: IV D5/ 0.9% NACL 1,000 ML IV PRN (07:12)
[2022-07-09 07:31] LABS: BASOPHILS % (AUTO) 0.4 % (0.0-2.0); EOSINOPHILS % (AUTO) 8.1 % (0.0-6.0); HEMATOCRIT 31 % (33-45); HEMOGLOBIN 9.9 g/dL (11.5-14.8); LYMPHOCYTES # (AUTO) 2.1 K/uL (0.8-4.8); LYMPHOCYTES % (AUTO) 26.9 % (20.0-44.0); MEAN CORPUSCULAR HGB CONC 32 g/dl (31.0-36.0); MEAN CORPUSCULAR VOLUME 88 fL (82-100); MONOCYTES # (AUTO) 0.5 K/uL (0.1-1.30); MONOCYTES % (AUTO) 6.5 % (2.0-12.0); NEUTROPHILS # (AUTO) 4.6 K/uL (1.8-8.9); NEUTROPHILS % (AUTO) 58.1 % (43.0-81.0); PLATELET COUNT (AUTO) 347 K/uL (150-450); RED BLOOD CELL COUNT(AUTO) 3.47 MIL/uL (4.0-5.2); WHITE BLOOD COUNT (AUTO) 7.9 K/uL (4.3-11.0)
[2022-07-09] MEDS: PANTOPRAZOLE 40 MG/PACK PACK GT SCH (09:02)
[2022-07-09] MEDS: POTASSIUM CHLORIDE 20 MEQ POWDER PACKET NG SCH ×6 (09:02→14:46)
[2022-07-09] MEDS: CHLORHEXIDINE GLUCONATE 15 ML UDC MM SCH ×2 (09:02→16:27)
[2022-07-09] MEDS: APIXABAN 2.5 MG TABLET GT SCH ×2 (09:03→17:00)
[2022-07-09] MEDS: LEVETIRACETAM (500MG) 500 MG in IV NS 0.9% 100 ML IV SCH (09:03)
[2022-07-09] MEDS: CLOTRIMAZOLE 1% 15 GM TUBE TP SCH ×2 (09:04→16:28)
--- NOTE | 2022-07-09 11:30 | NUR ---
STAGE ELECTRICIAN NOTE: BINDU FELIPE AT BEDSIDE. ORDERED TO START PT. ON TUBE FEEDING. WILL FOLLOW ORDERS.
[2022-07-09] MEDS ORDERED: JEVITY 1.2 CAL 1,000 ML BOTTLE GT PRN (13:00)
--- NOTE | 2022-07-09 13:16 | NUR ---
rn note received report from Red RN for continuity of care.
--- NOTE | 2022-07-09 13:20 | NUR ---
HYDROELECTRIC PLANT ELECTRICAL ENGINEERWHEAT GROWER NOTE: TRANSFERRED PT. TO TELE ROOM 111-1 VIA HOSPITAL BED. REPORT GIVEN AT BEDSIDE TO SENIOR ACCOUNTING ANALYSTJUAN RIOS. PT. REMAINS OBTUNDED, MOVES EYELIDS TO PAINFUL STIMULI. VENT/TRACH - SHILEY# 6 XLT; AC - 16; VT - 500; FIO2 - 30%; PEEP - 0. NO S/S OF RESPIRATORY DISTRESS. QA SOFTWARE TESTER READS SINUS WES AT THIS TIME. BP STABLE. WOUND TREATMENT/SKIN PRECAUTIONS DONE ORDERED. HAS PEG TUBE, CLAMPED AT THIS TIME, JUST RECEIVED TUBE FEEDING RECOMMENDATIONS, ENDORSED TO SENIOR ACCOUNTING ANALYST. FERRERA CATH DRAINED 800 ML CLEAR YELLOW URINE SO FAR. IV ACCESS ON ISA PICC LINE, WITH NS TKO RUNNING. IV SITE DRESSING C/D/I WITH NO S/S OF INFILTRATION. SAFETY MEASURES MAINTAINED: BED IN LOWEST AND LOCKED POSITION, HOB ELEVATED AT 30 DEGREES, BED ALARM ON, CALL LIGHT WITHIN REACH, SIDE RAILS UP X2. TURNED AND REPOSITIONED IN BED AT LEAST Q2H. PT.'S MEDS AND CHART HANDED OVER TO SENIOR ACCOUNTING ANALYSTJUAN RIOS, NO BELONGINGS NOTED. ENDORSED CONTINUITY OF CARE TO SENIOR ACCOUNTING ANALYSTJUAN RIOS.
--- NOTE | 2022-07-09 13:20 | NUR ---
DRAFTER (CAD) ELECTRONIC NOTE received report from Red STUDENT RECORDS SPECIALIST.PT REMAINS OBTUNDED, MOVES EYELIDS TO PAINFUL STIMULI. VENT/TRACH - SHILEY# 6 XLT; AC - 16; VT - 500; FIO2 - 30%; PEEP - 0. PT TOLERATING VENT SETTINGS WELL. PT ON MANUFACTURING SR ENGINEER CURRENTLY READING SINUS WES AT 50. PT HAS PEG TUBE. PT NOTED TO HAVE SCAR IN ABDOMINAL AREA. GT TUBE PATENT, INTACT, NO RESIDUAL VOLUME NOTED. PT HAS FERRERA CATHETER YELLOW/BLOOD COLOR DRAINING TO GRAVITY. PT HAS IV SITE ON RIGHT UPPER ARM PICC LINE. IV INTACT, PATENT AND FLUSHING WELL. NO SIGNS OF INFILTRATION. ALL SAFETY MEASURES MAINTAINED: BED IN LOWEST AND LOCKED POSITION, HOB ELEVATED AT 30 DEGREES, BED ALARM ON, CALL LIGHT WITHIN REACH, SIDE RAILS UP X2.
[2022-07-09] MEDS: VANCOMYCIN 1.25 GM in IV D5W 250 ML IV SCH (16:04)
[2022-07-09] MEDS: DOCUSATE SODIUM LIQ 100 MG/10 ML UDC GT SCH (17:03)
--- NOTE | 2022-07-09 17:26 | NUR ---
rn note notified mission assessment specialist lupe that patient has hematuria in urine. and if okay to hold eliquis. said to hold it for today only. orders noted and carried out
[2022-07-09] MEDS: JEVITY 1.2 CAL 1,000 ML BOTTLE GT PRN (17:28)
--- NOTE | 2022-07-09 19:27 | NUR ---
BATH SOLUTION MAKER CLOSING NOTE PT REMAINS OBTUNDED, MOVES EYELIDS TO PAINFUL STIMULI. VENT/TRACH - SHILEY# 6 XLT; AC - 16; VT - 500; FIO2 - 30%; PEEP - 0. PT TOLERATING VENT SETTINGS WELL. PT ON PARCEL WRAPPER CURRENTLY READING SINUS RHYTM AT 66. PT HAS PEG TUBE. PT NOTED TO HAVE SCAR IN ABDOMINAL AREA. GT TUBE PATENT, INTACT, NO RESIDUAL VOLUME NOTED. PT HAS JEVITY 1.2 RUNNING AT 20 ML/HR CURRENTLY AT THIS TIME. PT HAS FERRERA CATHETER HEMATURIA DRAINING TO GRAVITY. CMV DRIVER CATACLAN AWARE. PT HAS IV SITE ON RIGHT UPPER ARM PICC LINE. IV INTACT, PATENT AND FLUSHING WELL. NO SIGNS OF INFILTRATION. PT IS EDEMATOUS ON UPPER AND LOWER EXTREMITIES. ELEVATED EXTREMITIES WITH PILLOWS.ALL SAFETY MEASURES MAINTAINED: BED IN LOWEST AND LOCKED POSITION, HOB ELEVATED AT 30 DEGREES, BED ALARM ON, CALL LIGHT WITHIN REACH, SIDE RAILS UP X2. ENDORSED TO CARE TECHNICIAN RN FOR CONTUITY OF CARE
[2022-07-09] MEDS: FLUCONAZOLE IN NS 100 MG in PREMIX 1 EA IV SCH ×2 (19:40)
--- NOTE | 2022-07-09 20:03 | NUR ---
RECEIVED IN BED EYES OPEN NONVERBAL TRACH IN PLACE RESP EVEN AND UNLABORED On TELE SR WITH PACs
[2022-07-09] MEDS: KEPPRA 1000 MG in IV NS 100 ML IV SCH (21:04)
[2022-07-10] VITALS (7 sets, daily range): BP systolic 117–148; BP diastolic 57–70
[2022-07-10] MEDS: MEROPENEM 500 MG in IV NS 0.9% 50 ML IV SCH ×3 (04:34→21:06)
--- NOTE | 2022-07-10 05:10 | NUR ---
RN CLOSING NOTES: NON VERBAL MOUTH OPEN EYES LOOKING STRAIGHT AHEAD NO EYE CONTACT WITH THE NURSE OBTUNDED NO RESPONSE WHEN SPOKEN TO OR TOUCHED ASP PRECAUTIONS REG FEEDING INFUSING 40 ML AT THIS TIME NEARING THE GOAL OF 70 ML HR INCREASING Q4 HRS BY 10 ML IF TOLERATING. NO RESIDUAL NOTED NEAR ANUS A SMALL HOLE (FISTULA) md AWARE HAS BEEN SEEN BY THE SURG MD REPAIR POSSIBLE TUESDAY
[2022-07-10 06:36] LABS: BASOPHILS % (AUTO) 0.4 % (0.0-2.0); EOSINOPHILS % (AUTO) 7.8 % (0.0-6.0); HEMATOCRIT 33 % (33-45); HEMOGLOBIN 10.8 g/dL (11.5-14.8); LYMPHOCYTES # (AUTO) 2.5 K/uL (0.8-4.8); LYMPHOCYTES % (AUTO) 25.9 % (20.0-44.0); MEAN CORPUSCULAR HGB CONC 32 g/dl (31.0-36.0); MEAN CORPUSCULAR VOLUME 88 fL (82-100); MONOCYTES # (AUTO) 0.7 K/uL (0.1-1.30); MONOCYTES % (AUTO) 7.2 % (2.0-12.0); NEUTROPHILS # (AUTO) 5.6 K/uL (1.8-8.9); NEUTROPHILS % (AUTO) 58.7 % (43.0-81.0); PLATELET COUNT (AUTO) 383 K/uL (150-450); WHITE BLOOD COUNT (AUTO) 9.5 K/uL (4.3-11.0)
[2022-07-10 07:11] LABS: ALANINE AMINOTRANSFERASE 44 U/L (12-78); ALKALINE PHOSPHATASE 154 U/L (46-116); ASPARTATE AMINOTRANSFERASE 35 U/L (15-37); BILIRUBIN,TOTAL 0.3 mg/dL (0.2-1.0); CALCIUM, SERUM 8.3 mg/dL (8.5-10.1); CARBON DIOXIDE 22 mmol/L (21-32); CHLORIDE 111 mmol/L (98-107); CREATININE 0.5 mg/dL (0.6-1.3); GLUCOSE 116 mg/dL (74-106); MAGNESIUM 1.7 mg/dL (1.8-2.4); PHOSPHORUS 3.1 mg/dL (2.5-4.9); POTASSIUM 3.9 mmol/L (3.5-5.1); SODIUM SERUM 141 mmol/L (136-145); TOTAL PROTEIN, SERUM 5.1 g/dL (6.4-8.2); UREA NITROGEN, BLOOD 8 mg/dL (7-18)
--- NOTE | 2022-07-10 07:15 | NUR ---
RN note Received patient in bed. [id number]. On ventilator support via tracheostomy, SpO2 100%. color television console monitor showed AF with HR 75/min. Jevity1.2 is running at 50mL/hr. Right UA PICC is dry and patent. Machuca is in place, draining pink urine out. Call freeman is placed within reach. Bed is locked and placed in the lowest position. Will continue monitorign and care.
[2022-07-10 07:45] LABS: ALBUMIN 1.3 g/dL (3.4-5.0)
[2022-07-10] MEDS: PANTOPRAZOLE 40 MG/PACK PACK GT SCH (08:53)
[2022-07-10] MEDS: CHLORHEXIDINE GLUCONATE 15 ML UDC MM SCH ×2 (08:53→16:54)
[2022-07-10] MEDS: LEVETIRACETAM (500MG) 500 MG in IV NS 0.9% 100 ML IV SCH (08:53)
[2022-07-10] MEDS: APIXABAN 2.5 MG TABLET GT SCH ×2 (08:55→16:53)
[2022-07-10] MEDS: CLOTRIMAZOLE 1% 15 GM TUBE TP SCH ×2 (08:56→16:54)
[2022-07-10] MEDS: Magnesium 1GM/D5W 100ML PREMIX 100 ML IV SCH ×2 (11:44→12:39)
[2022-07-10] MEDS: IV NS 0.9% 250 ML IV PRN (12:40)
[2022-07-10] MEDS: VANCOMYCIN 1.25 GM in IV D5W 250 ML IV SCH (16:27)
[2022-07-10] MEDS: JEVITY 1.2 CAL 1,000 ML BOTTLE GT PRN (16:27)
[2022-07-10] MEDS: DOCUSATE SODIUM LIQ 100 MG/10 ML UDC GT SCH (17:23)
--- NOTE | 2022-07-10 19:20 | NUR ---
RN NOTE RECEIVED PT FOR CONTINUITY OF CARE. PATIENT A/OX0 IN NO S/SX OF ACUTE DISTRESS AT THIS TIME; CURRENTLY ON MECHANICAL VENT; SETTING PRESCRIBED, WITH 02 SAT >95% AT THIS TIME. WITH IV ACCESS PATENT, INTACT AND FLUSHING WELL. FERRERA CATH IN PLACE, MODERATE URINE OUTPUT NOTED. WILL ENSURE SAFETY MEASURES WITHIN THE SHIFT. PATIENT BED ALARM IS ON. HEAD OF BED ELEVATED. BED IS LOCKED, IN LOWEST POSITION AND SIDE RAILS UP. CALL LIGHT WITHIN REACH OF THE PATIENT. WILL CONTINUE TO MONITOR AND REASSESS FOR ANY CHANGES AND WILL CARRY OUT ANY ONGOING AND ACTIVE MD ORDER.
[2022-07-10] MEDS: FLUCONAZOLE IN NS 100 MG in PREMIX 1 EA IV SCH ×2 (19:53)
[2022-07-10] MEDS: KEPPRA 1000 MG in IV NS 100 ML IV SCH (21:06)
[2022-07-11] VITALS: BP 127/70
[2022-07-11 04:00] VITALS: BP 119/63
--- NOTE | 2022-07-11 04:00 | NUR ---
RN NOTES PATIENT REMAINED TO BE IN NO SIGNS OF ACUTE RESPIRATORY DISTRESS, VITAL SIGNS STABLE AT THIS TIME. REGULAR TURNING AND REPOSITIONING DONE, SUCTIONING DONE, AND AM PATIENT CARE RENDERED WILL CONTINUE TO MONITOR AND REASSESS FOR ANY CHANGES THROUGHOUT THE SHIFT.
[2022-07-11] MEDS: MEROPENEM 500 MG in IV NS 0.9% 50 ML IV SCH ×3 (05:01→20:25)
[2022-07-11 06:22] LABS: BASOPHILS # (AUTO) 0.1 K/uL (0.0-0.2); BASOPHILS % (AUTO) 0.5 % (0.0-2.0); EOSINOPHILS % (AUTO) 4.4 % (0.0-6.0); HEMATOCRIT 37 % (33-45); HEMOGLOBIN 11.4 g/dL (11.5-14.8); LYMPHOCYTES # (AUTO) 2.1 K/uL (0.8-4.8); LYMPHOCYTES % (AUTO) 17.3 % (20.0-44.0); MEAN CORPUSCULAR HGB CONC 31 g/dl (31.0-36.0); MEAN CORPUSCULAR VOLUME 89 fL (82-100); MONOCYTES # (AUTO) 0.8 K/uL (0.1-1.30); MONOCYTES % (AUTO) 6.2 % (2.0-12.0); NEUTROPHILS # (AUTO) 8.7 K/uL (1.8-8.9); NEUTROPHILS % (AUTO) 71.6 % (43.0-81.0); PLATELET COUNT (AUTO) 370 K/uL (150-450); WHITE BLOOD COUNT (AUTO) 12.2 K/uL (4.3-11.0)
--- NOTE | 2022-07-11 06:33 | NUR ---
RN CLOSING NOTE: PATIENT REMAINS IN ROOM IN NO SIGNS OF RESPIRATORY DISTRESS, PATIENT STILL ON MECH VENT; SETTINGS PRESCRIBED;TOLERATING WELL SATURATING @ >95% SP02. SAFETY MEASURES IMPLEMENTED, BED IN LOWEST POSITION, LOCKED, SIDE RAILS UP, CALL LIGHT WITHIN REACH. ALL NEEDS AND ORDERS ADDRESSED DURING THE SHIFT. IV ACCESS MAINTAINED INTACT, SECURED AND FLUSHING WELL. ALL DUE MEDS GIVEN ORDERED & SCHEDULED ; PATIENT TOLERATED WELL. PATIENT KEPT CLEAN AND COMFORTABLE WITHIN THE SHIFT. PATIENT ENDORSED TO INCOMING SHIFT RN WITH STABLE VITAL SIGN AND FOR CONTINUITY OF CARE.
[2022-07-11 06:41] LABS: CALCIUM, SERUM 8.3 mg/dL (8.5-10.1); CARBON DIOXIDE 22 mmol/L (21-32); CHLORIDE 106 mmol/L (98-107); CREATININE 0.5 mg/dL (0.6-1.3); GLUCOSE 136 mg/dL (74-106); MAGNESIUM 2.2 mg/dL (1.8-2.4); PHOSPHORUS 3.3 mg/dL (2.5-4.9); POTASSIUM 4.1 mmol/L (3.5-5.1); SODIUM SERUM 134 mmol/L (136-145); UREA NITROGEN, BLOOD 11 mg/dL (7-18)
--- NOTE | 2022-07-11 07:15 | NUR ---
FINANCIAL SERVICES COUNSELOR OPENING NOTES Received pt wake in bed. Non verbal and unable to follow command. No signs of pain or discomfort at this time. Respirations are equal and unlabored with no SOB. Trach is patent, intact, and in midline position. Pt is on a ventilator on prescribed settings tolerating it well. IV access on ISA PICC line patent and intact. HOb elevated ti 30-45 degrees. Siderails up at all times. Call light within reach. Will continue to monitor.
[2022-07-11 08:00] VITALS: BP 98/67
[2022-07-11] MEDS: APIXABAN 2.5 MG TABLET GT SCH ×2 (08:22→16:11)
[2022-07-11] MEDS: CLOTRIMAZOLE 1% 15 GM TUBE TP SCH ×2 (08:22→16:11)
--- NOTE | 2022-07-11 08:22 | NUR ---
EDI ARCHITECT NOTES Apixaban held d/t pt possibly having a procedure done tomorrow. CN aware.
[2022-07-11] MEDS: LEVETIRACETAM (500MG) 500 MG in IV NS 0.9% 100 ML IV SCH (08:27)
[2022-07-11] MEDS: CHLORHEXIDINE GLUCONATE 15 ML UDC MM SCH ×2 (08:34→17:42)
[2022-07-11] MEDS: PANTOPRAZOLE 40 MG/PACK PACK GT SCH (08:34)
--- NOTE | 2022-07-11 09:15 | NUR ---
SMOOTH PLATER NOTES GTF to be turned off until further orders per Dr. Ayers.
[2022-07-11 12:00] VITALS: BP 95/60
[2022-07-11 16:00] VITALS: BP 121/52
[2022-07-11] MEDS: VANCOMYCIN 1.25 GM in IV D5W 250 ML IV SCH (16:01)
[2022-07-11] MEDS: DOCUSATE SODIUM LIQ 100 MG/10 ML UDC GT SCH (17:42)
--- NOTE | 2022-07-11 18:27 | NUR ---
HAND COPER CLOSING NOTES All due meds an tx given as ordered. Pt tolerated everything well. All needs attended to. Pt is on prescribed vent settings al tolerating it well. IV access on ISA PICC line patent and intact. GTF is currently off per Dr. Ayers order for the fistula procedure that will be done tomorrow. HOB elevated to 30-45 degrees. Siderails up at all times x2. Call light within reach. WIll endorse to oncoming nurse.
[2022-07-11] MEDS: FLUCONAZOLE IN NS 100 MG in PREMIX 1 EA IV SCH ×2 (18:54)
[2022-07-11 20:00] VITALS: BP 146/66
--- NOTE | 2022-07-11 20:00 | NUR ---
TOWER EXCAVATOR OPERATOR OPENING NOTES Received patient in bed sleeping, obtunded. Pt is on prescribed vent settings al tolerating it well, no sob noted, respiration even and unlabored, not in distress, no facial grimacing noted. IV access on ISA PICC line patent and intact. GTF is currently off per Dr. Ayers order for the fistula procedure that will be done tomorrow. HOB elevated to 30-45 degrees. Siderails up at all times x2. Call light within reach. Plan of care continue.
[2022-07-11] MEDS: KEPPRA 1000 MG in IV NS 100 ML IV SCH (21:07)
--- NOTE | 2022-07-11 21:27 | NUR ---
on tele monitoring with reading AFIB CONTROLLED. PLAN OF CARE CONTINUE.
[2022-07-12] VITALS: BP 141/76
[2022-07-12 04:00] VITALS: BP 129/55
[2022-07-12] MEDS: MEROPENEM 500 MG in IV NS 0.9% 50 ML IV SCH ×3 (04:02→20:16)
--- NOTE | 2022-07-12 06:07 | NUR ---
COMMUNICATION MANAGER CLOSING NOTES Received patient in bed sleeping, obtunded. Pt is on prescribed vent settings al tolerating it well, no sob noted, respiration even and unlabored, not in distress, no facial grimacing noted. IV access on ISA PICC line patent and intact. GTF is currently off per Dr. Ayers order for the fistula procedure that will be done tomorrow. HOB elevated to 30-45 degrees. Siderails up at all times x2. Call light within reach. WILL ENDORSE TO MORNING NURSE FOR LELA.
--- NOTE | 2022-07-12 07:15 | NUR ---
WOOD INSPECTOR OPENING NOTES Received pt wake in bed. Non verbal and unable to follow command. No signs of pain or discomfort at this time. Respirations are equal and unlabored with no SOB. Trach is patent, intact, and in midline position. Pt is on a ventilator on prescribed settings tolerating it well. IV access on ISA PICC line patent and intact. GTF held until further notice pending procedure. HOB elevated to 30-45 degrees. Siderails up at all times. Call light within reach. Will continue to monitor.
[2022-07-12 07:19] LABS: CALCIUM, SERUM 8.5 mg/dL (8.5-10.1); CARBON DIOXIDE 23 mmol/L (21-32); CHLORIDE 106 mmol/L (98-107); CREATININE 0.5 mg/dL (0.6-1.3); GLUCOSE 91 mg/dL (74-106); PHOSPHORUS 3.4 mg/dL (2.5-4.9); POTASSIUM 3.6 mmol/L (3.5-5.1); SODIUM SERUM 136 mmol/L (136-145); UREA NITROGEN, BLOOD 13 mg/dL (7-18)
[2022-07-12 08:00] VITALS: BP 105/57
[2022-07-12] MEDS: PANTOPRAZOLE 40 MG/PACK PACK GT SCH (08:28)
[2022-07-12] MEDS: CHLORHEXIDINE GLUCONATE 15 ML UDC MM SCH ×2 (08:28→17:16)
[2022-07-12] MEDS: APIXABAN 2.5 MG TABLET GT SCH ×2 (08:29→17:17)
[2022-07-12] MEDS: LEVETIRACETAM (500MG) 500 MG in IV NS 0.9% 100 ML IV SCH (08:32)
[2022-07-12] MEDS: CLOTRIMAZOLE 1% 15 GM TUBE TP SCH ×2 (08:37→17:22)
[2022-07-12] MEDS ORDERED: LEVETIRACETAM SOL (5 ML) 100 MG/ML UDC GT SCH (09:00)
[2022-07-12 09:07] LABS: BASOPHILS # (AUTO) 0.1 K/uL (0.0-0.2); BASOPHILS % (AUTO) 0.7 % (0.0-2.0); EOSINOPHILS % (AUTO) 2.9 % (0.0-6.0); HEMATOCRIT 34 % (33-45); HEMOGLOBIN 10.5 g/dL (11.5-14.8); LYMPHOCYTES # (AUTO) 3.5 K/uL (0.8-4.8); LYMPHOCYTES % (AUTO) 23.7 % (20.0-44.0); MEAN CORPUSCULAR HGB CONC 31 g/dl (31.0-36.0); MEAN CORPUSCULAR VOLUME 90 fL (82-100); MONOCYTES # (AUTO) 0.8 K/uL (0.1-1.30); MONOCYTES % (AUTO) 5.3 % (2.0-12.0); NEUTROPHILS # (AUTO) 9.9 K/uL (1.8-8.9); NEUTROPHILS % (AUTO) 67.4 % (43.0-81.0); PLATELET COUNT (AUTO) 320 K/uL (150-450); RED BLOOD CELL COUNT(AUTO) 3.76 MIL/uL (4.0-5.2); WHITE BLOOD COUNT (AUTO) 14.7 K/uL (4.3-11.0)
[2022-07-12 12:00] VITALS: BP 133/73
[2022-07-12] MEDS ORDERED: BUPIVACAINE MPF W/EPI 0.25% 30 ML VIAL IJ ONE (12:30)
[2022-07-12] MEDS ORDERED: LIDOCAINE 1%-EPI 1:100,000 20 ML VIAL TP ONE (12:30)
--- NOTE | 2022-07-12 13:24 | NUR ---
CERTIFIED SHORTHAND REPORTER NOTES Fistula procedure done at bedside by Dr. Zaragoza. Pt tolerated the procedure well. Dr. Zaragoza ordered to leave the area open to air.
[2022-07-12 16:00] VITALS: BP 131/60
[2022-07-12] MEDS: JEVITY 1.2 CAL 1,000 ML BOTTLE GT PRN (16:20)
[2022-07-12] MEDS: VANCOMYCIN 1.25 GM in IV D5W 250 ML IV SCH (16:21)
[2022-07-12] MEDS: DOCUSATE SODIUM LIQ 100 MG/10 ML UDC GT SCH (17:16)
--- NOTE | 2022-07-12 17:50 | NUR ---
WIRELINE SUPERVISOR NOTES Dr. Ayers gave order to resume GTF on previous settings.
--- NOTE | 2022-07-12 18:23 | NUR ---
SAW TAILER CLOSING NOTES All due meds an tx given as ordered. Pt tolerated everything well. All needs attended to. Pt is on prescribed vent settings al tolerating it well. IV access on ISA PICC line patent and intact. GTF running on prescribed settings per Dr. Ayers. HOB elevated to 30-45 degrees. Siderails up at all times x2. Call light within reach. Will endorse to oncoming nurse.
--- NOTE | 2022-07-12 19:30 | NUR ---
SCALEHOUSE ATTENDANT OPENING NOTES Received patient in bed sleeping, obtunded. Currently on prescribed vent settings; pt tolerating well, no sob noted, respiration even and unlabored, no s/sx of acute respi distress noted at this time. IV access on ISA PICC line, patent and intact, flushes well, running NS TKO. GTF noted, running Jevity 1.2 @ 70 cc/hr, no residual. FC in place, draining yellow urine by gravity. Pt is s/p anal fistula repair. All safety measures in place: bed locked in low position, bed alarm on, HOB elevated 30-45 degrees, Side rails up x2. Call light within reach. will continue to monitor pt.
[2022-07-12 20:00] VITALS: BP 140/94
[2022-07-12] MEDS: LEVETIRACETAM SOL (5 ML) 100 MG/ML UDC GT SCH (20:17)
[2022-07-12] MEDS: FLUCONAZOLE (100 MG) 100 MG TABLET GT SCH (20:17)
[2022-07-13] VITALS: BP 121/57
--- NOTE | 2022-07-13 00:19 | NUR ---
RN NOTE PT TEMP WENT UP TO 100.1, PT GIVEN TYLENOL PRN ORDERED. IN NO APPARENT RESPI DISTRESS. WILL CONTINUE TO MONITOR.
[2022-07-13 04:00] VITALS: BP 108/50
[2022-07-13] MEDS: MEROPENEM 500 MG in IV NS 0.9% 50 ML IV SCH ×3 (04:11→20:41)
[2022-07-13] MEDS: IV NS 0.9% 250 ML IV PRN ×2 (05:35→18:26)
--- NOTE | 2022-07-13 06:08 | NUR ---
RN NOTE NO SIGNIFICANT CHANGE T/O THE NIGHT. NO S/SX OF ACUTE RESPI DISTRESS NOTED. SR WITH BBB ON THE SILK SPOOLER. ALL DUE MEDS GIVEN. NEEDS MET. TURNED AND REPOSITIONED. WILL ENDORSE TO AM SHIFT NURSE FOR LELA.
[2022-07-13 07:20] LABS: BASOPHILS % (AUTO) 0.1 % (0.0-2.0); EOSINOPHILS % (AUTO) 0.2 % (0.0-6.0); HEMATOCRIT 32 % (33-45); LYMPHOCYTES # (AUTO) 1.9 K/uL (0.8-4.8); LYMPHOCYTES % (AUTO) 5.5 % (20.0-44.0); MEAN CORPUSCULAR HGB CONC 31 g/dl (31.0-36.0); MEAN CORPUSCULAR VOLUME 90 fL (82-100); MONOCYTES # (AUTO) 1.4 K/uL (0.1-1.30); MONOCYTES % (AUTO) 4.1 % (2.0-12.0); NEUTROPHILS # (AUTO) 31.5 K/uL (1.8-8.9); NEUTROPHILS % (AUTO) 90.1 % (43.0-81.0); PLATELET COUNT (AUTO) 342 K/uL (150-450); RED BLOOD CELL COUNT(AUTO) 3.58 MIL/uL (4.0-5.2)
--- NOTE | 2022-07-13 07:50 | NUR ---
RN NOTE WBC [address] PARMAR. NO ORDERS
[2022-07-13 07:52] LABS: CALCIUM, SERUM 7.7 mg/dL (8.5-10.1); CARBON DIOXIDE 25 mmol/L (21-32); CHLORIDE 107 mmol/L (98-107); CREATININE 0.7 mg/dL (0.6-1.3); GLUCOSE 179 mg/dL (74-106); MAGNESIUM 1.6 mg/dL (1.8-2.4); PHOSPHORUS 3.1 mg/dL (2.5-4.9); POTASSIUM 3.1 mmol/L (3.5-5.1); SODIUM SERUM 138 mmol/L (136-145); UREA NITROGEN, BLOOD 16 mg/dL (7-18)
--- NOTE | 2022-07-13 07:55 | NUR ---
TELE OPENING NOTES Received patient in bed sleeping, obtunded. Currently on prescribed vent settings; pt tolerating well, no sob noted, respiration even and unlabored, no s/sx of acute respi distress noted at this time. IV access on ISA PICC line, patent and intact, flushes well, running NS TKO. GTF noted, running Jevity 1.2 @ 70 cc/hr, no residual. FC in place, draining by gravity. Pt is s/p anal fistula repair. All safety measures in place: bed locked in low position, bed alarm on, HOB elevated 30-45 degrees, Side rails up x2. Call light within reach.
[2022-07-13 08:00] VITALS: BP 100/70
[2022-07-13] MEDS: CLOTRIMAZOLE 1% 15 GM TUBE TP SCH ×2 (08:14→17:25)
[2022-07-13] MEDS: CHLORHEXIDINE GLUCONATE 15 ML UDC MM SCH ×2 (08:14→17:24)
[2022-07-13] MEDS: LEVETIRACETAM SOL (5 ML) 100 MG/ML UDC GT SCH ×2 (08:14→20:09)
[2022-07-13] MEDS: PANTOPRAZOLE 40 MG/PACK PACK GT SCH (08:14)
[2022-07-13] MEDS: APIXABAN 2.5 MG TABLET GT SCH ×2 (08:15→17:24)
[2022-07-13 10:30] LABS: BAND % (MANUAL) 3 % (0.0-5.0); LYMPHOCYTES % (MANUAL) 3 % (16-48); MONOCYTES % (MANUAL) 3 % (0-11.0); NEUTROPHILS % (MANUAL) 91 (42-76)
[2022-07-13 12:00] VITALS: BP 105/60
[2022-07-13] MEDS ORDERED: MAGNESIUM OXIDE 400 MG TABLET GT ONE (12:30)
[2022-07-13] MEDS: METRONIDAZOLE 500 MG TABLET PO SCH ×2 (12:30→21:40)
[2022-07-13] MEDS: JEVITY 1.2 CAL 1,000 ML BOTTLE GT PRN (13:52)
[2022-07-13] MEDS: POTASSIUM CL. PREMIX PERIPHER. 50 ML IV SCH ×4 (14:06→17:24)
[2022-07-13 16:00] VITALS: BP 118/52
--- NOTE | 2022-07-13 16:30 | NUR ---
RN NOTE REPLACED FERRERA CATH ORDERED. 16 TURKISH PLACED URINE OUTPUT NOTED
[2022-07-13] MEDS: DOCUSATE SODIUM LIQ 100 MG/10 ML UDC GT SCH (17:24)
[2022-07-13] MEDS: VANCOMYCIN 1.25 GM in IV D5W 250 ML IV SCH (18:22)
--- NOTE | 2022-07-13 18:35 | NUR ---
TELE CLOSING NOTES Received patient in bed sleeping, obtunded. Pt is on prescribed vent settings al tolerating it well, no sob noted, respiration even and unlabored, not in distress, no facial grimacing noted. IV access on ISA PICC line patent and intact running to tko. GTF running 70mls/hr no residual. HOB elevated to 30-45 degrees. Siderails up at all times x2. Call light within reach. Will endorse to night nurse for alka
--- NOTE | 2022-07-13 19:29 | NUR ---
RAIL CAR REPAIRMAN OPENING NOTES - RECEIVED PATIENT LAYING IN BED. OBTUNDED. BREATHING EVEN AND NON-LABORED, ON MECHANICAL VENT TOLERATING CURRENT SETTINGS WELL. NOT IN APPARENT DISTRESS. NO S/S OF PAIN OR DISCOMFORT NOTED AT THIS TIME. ON TELE MONITOR READING SINUS RHYTHM WITH PVC AND PAC AT 62 BPM. HAS RIGHT UPPER ARM PICC LINE WITH IVPB VANCO RUNNING AT 125 ML/HR. NO S/S OF INFILTRATION NOTED. HAS INDWELLING FERRERA CATHETER DRAINING BLOOD-TINGED URINE TO BAG BY GRAVITY. SAFETY PRECAUTIONS IN PLACE: BED LOCKED AND IN LOW POSITION, HOB ON SEMI-LIRA'S, SIDE RAILS UP X3, CALL LIGHT WITHIN REACH. WILL CONTINUE PLAN OF CARE.
[2022-07-13] MEDS: FLUCONAZOLE (100 MG) 100 MG TABLET GT SCH (19:41)
[2022-07-13 20:00] VITALS: BP 117/60
--- NOTE | 2022-07-13 21:46 | NUR ---
Patient received on vent via trach tube Shiley [id number]. Vent settings are AC 16, 500, 30%, +5. Alarms set and audible. Trach secured via trach tie. Pt receiving Albuterol and Atrovent Q6. Suctioned small, thin and clear secretions. Ambu bag at bedside. Head of bed at 30 degrees. Addendum: 07/13/22 at 2153 by NIR TRINH RT Amended: Links added.
[2022-07-14] VITALS: BP 118/60
[2022-07-14 04:00] VITALS: BP 103/59
[2022-07-14] MEDS: MEROPENEM 500 MG in IV NS 0.9% 50 ML IV SCH ×3 (04:17→20:28)
[2022-07-14] MEDS: METRONIDAZOLE 500 MG TABLET PO SCH ×3 (04:17→20:28)
[2022-07-14 06:34] LABS: BASOPHILS % (AUTO) 0.2 % (0.0-2.0); EOSINOPHILS % (AUTO) 2.3 % (0.0-6.0); HEMATOCRIT 30 % (33-45); HEMOGLOBIN 9.2 g/dL (11.5-14.8); LYMPHOCYTES # (AUTO) 2.4 K/uL (0.8-4.8); LYMPHOCYTES % (AUTO) 11.8 % (20.0-44.0); MEAN CORPUSCULAR HGB CONC 31 g/dl (31.0-36.0); MEAN CORPUSCULAR VOLUME 90 fL (82-100); MONOCYTES # (AUTO) 0.9 K/uL (0.1-1.30); MONOCYTES % (AUTO) 4.4 % (2.0-12.0); NEUTROPHILS # (AUTO) 16.2 K/uL (1.8-8.9); NEUTROPHILS % (AUTO) 81.3 % (43.0-81.0); PLATELET COUNT (AUTO) 283 K/uL (150-450); RED BLOOD CELL COUNT(AUTO) 3.27 MIL/uL (4.0-5.2); WHITE BLOOD COUNT (AUTO) 19.9 K/uL (4.3-11.0)
[2022-07-14 06:52] LABS: CARBON DIOXIDE 23 mmol/L (21-32); CHLORIDE 107 mmol/L (98-107); CREATININE 0.5 mg/dL (0.6-1.3); GLUCOSE 140 mg/dL (74-106); MAGNESIUM 1.8 mg/dL (1.8-2.4); PHOSPHORUS 2.4 mg/dL (2.5-4.9); POTASSIUM 3.4 mmol/L (3.5-5.1); SODIUM SERUM 136 mmol/L (136-145); UREA NITROGEN, BLOOD 18 mg/dL (7-18)
--- NOTE | 2022-07-14 06:55 | NUR ---
LEAD OXIDE MILL TENDER CLOSING NOTES - PATIENT SLEEPING IN BED. NO ACUTE DISTRESS THROUGHOUT THE NIGHT. AFEBRILE. NO FACIAL GRIMACING OR DISCOMFORT NOTED. ON TELE MONITOR READING CONTROLLED A-FIB AT 64 BPM. RIGHT UPPER ARM PICC LINE INTACT, PATENT AND FLUSHING. G-TUBE FEEDING OF JEVITY 1.2 RUNNING AT 70 ML/HR, AUSCULTATED AND FLUSHED. RESIDUAL OF 100 ML NOTED. URINE OUTPUT STILL NOTED WITH DARK BROWN BLOOD. ALL DUE MEDS GIVEN AND NEEDS ATTENDED. SAFETY PRECAUTIONS MAINTAINED. WILL ENDORSE TO NEXT SHIFT FOR CONTINUITY OF CARE.
[2022-07-14 08:00] VITALS: BP 134/56
[2022-07-14] MEDS: CHLORHEXIDINE GLUCONATE 15 ML UDC MM SCH ×2 (08:12→16:33)
[2022-07-14] MEDS: LEVETIRACETAM SOL (5 ML) 100 MG/ML UDC GT SCH ×2 (08:12→20:28)
[2022-07-14] MEDS: PANTOPRAZOLE 40 MG/PACK PACK GT SCH (08:12)
[2022-07-14] MEDS: APIXABAN 2.5 MG TABLET GT SCH ×2 (08:24→16:34)
[2022-07-14] MEDS: CLOTRIMAZOLE 1% 15 GM TUBE TP SCH ×2 (08:24→16:34)
[2022-07-14] MEDS ORDERED: POTASSIUM CHLORIDE 20 MEQ POWDER PACKET NG SCH (09:30)
[2022-07-14 12:00] VITALS: BP 107/61
[2022-07-14] MEDS: JEVITY 1.2 CAL 1,000 ML BOTTLE GT PRN (13:46)
[2022-07-14] MEDS ORDERED: NEUTRA PHOS 1 POWD.PACKET NG ONE (15:30)
[2022-07-14 16:00] VITALS: BP 132/70
[2022-07-14] MEDS ORDERED: VANCOMYCIN 1 GM in IV D5W 250 ML IV SCH (16:00)
[2022-07-14] MEDS: DOCUSATE SODIUM LIQ 100 MG/10 ML UDC GT SCH (17:01)
--- NOTE | 2022-07-14 19:30 | NUR ---
ACCORDION MAKER OPENING NOTE RECEIVED PT IN BED, EYES CLOSED, EASILY AROUSABLE WITH TACTILE AND PAIN STIMULI, NONVERBAL. NO EVIDENCE OF PAIN/DISCOMFORT AT THIS TIME. CURRENT VENT SETTINGS WELL CALISTA, NO SOB, NO ACUTE RESP DISTRESS NOTED. ISA PICC LINE PATENT, INTACT, NO S/S OF INFX. GT IN PLACED, PATENT AND SECURED, CURRENTLY RUNNING JEVITY 1.2@70ML/HR, WELL TOLERATED. ASPIRATIONS PRECAUTION OBSERVED, HOB ELEVATED. SAFETY PRECAUTIONS IMPLEMENTED: BED LOCKED AND IN LOWEST POSITION, BRX2 UP. WILL CONT POC.
[2022-07-14 20:00] VITALS: BP 114/56
[2022-07-14] MEDS: FLUCONAZOLE (100 MG) 100 MG TABLET GT SCH (20:28)
[2022-07-15] VITALS: BP 102/58
[2022-07-15 04:00] VITALS: BP 103/51
[2022-07-15] MEDS: MEROPENEM 500 MG in IV NS 0.9% 50 ML IV SCH (04:40)
[2022-07-15] MEDS: METRONIDAZOLE 500 MG TABLET GT SCH ×2 (04:42→12:26)
[2022-07-15] MEDS: IV NS 0.9% 250 ML IV PRN (04:45)
--- NOTE | 2022-07-15 06:25 | NUR ---
RFID MANAGER CLOSING NOTE PT ASLEEP, OPENS EYES WITH TACTILE AND PAIN STIMULI, NONVERBAL. NO SIGNIFICANT CHANGES NOTED DURING THE SHIFT. CURRENT VENT SETTINGS WELL CALISTA, NO SOB, NO ACUTE RESP DISTRESS NOTED, O2 SAT 97%. ISA PICC LINE PATENT, INTACT, NO S/S OF INFX. ON EXTERNAL PRIMARY MILL ROLLER READING AFIB HR 67. GT IN PLACED, PATENT AND SECURED, CURRENTLY RUNNING JEVITY 1.2 @70ML/HR, WELL TOLERATED. ALL DUE MEDIATIONS GIVEN ORDERED. ALL NEEDS ANTICIPATED. KEPT PT CLEAN AND DRY AT ALL TIMES. FC IN PLACED, PATENT DRAINING DARK YELLOW URINE BY GRAVITY. TURN AND REPOS Q2HRS/PRN. ASPIRATIONS PRECAUTION OBSERVED, HOB ELEVATED. SAFETY PRECAUTIONS IMPLEMENTED: BED LOCKED AND IN LOWEST POSITION, BRX2 UP.
[2022-07-15] MEDS: JEVITY 1.2 CAL 1,000 ML BOTTLE GT PRN (06:35)
[2022-07-15 07:16] LABS: CALCIUM, SERUM 8.1 mg/dL (8.5-10.1); CREATININE 0.6 mg/dL (0.6-1.3); MAGNESIUM 1.8 mg/dL (1.8-2.4); PHOSPHORUS 2.7 mg/dL (2.5-4.9); POTASSIUM 3.5 mmol/L (3.5-5.1)
--- NOTE | 2022-07-15 07:30 | NUR ---
GENERAL FOUNDRY WORKER AM NOTE RECEIVED PT IN BED, EYES CLOSED, RESPONDS TO TACTILE AND PAIN STIMULI, NONVERBAL. WITH SH 6 TRACH TO MECHANICAL VENT WITH SETTINGS ORDERED AC 16 TV 500 FIO2 30 PEEP 5, BREATHING EVEN AND UNLABORED. NO DISTRESS.NO EVIDENCE OF PAIN/DISCOMFORT AT THIS TIME. AFIB HR [address] MONITOR[address] GT IN PLACE, ONGOING JEVITY 1.2@70ML/HR, WELL TOLERATED. O RESIDUAL. GT CHECKED FOR PLACEMENT AND FLUSHED. SEE NURSING FLOWSHEET FOR SKIN ISSUES. ASPIRATIONS PRECAUTION OBSERVED, HOB ELEVATED. SAFETY PRECAUTIONS IMPLEMENTED: BED LOCKED AND IN LOWEST POSITION, BRX2 UP. WILL CONT POC AND MONITOR ACCORDINGLY
[2022-07-15 08:00] VITALS: BP 117/64
[2022-07-15 08:24] LABS: BASOPHILS % (AUTO) 0.3 % (0.0-2.0); EOSINOPHILS % (AUTO) 5.1 % (0.0-6.0); HEMATOCRIT 28 % (33-45); LYMPHOCYTES # (AUTO) 2.1 K/uL (0.8-4.8); LYMPHOCYTES % (AUTO) 18.3 % (20.0-44.0); MEAN CORPUSCULAR HGB CONC 32 g/dl (31.0-36.0); MEAN CORPUSCULAR VOLUME 89 fL (82-100); MONOCYTES # (AUTO) 0.6 K/uL (0.1-1.30); MONOCYTES % (AUTO) 5.8 % (2.0-12.0); NEUTROPHILS # (AUTO) 7.9 K/uL (1.8-8.9); NEUTROPHILS % (AUTO) 70.5 % (43.0-81.0); PLATELET COUNT (AUTO) 286 K/uL (150-450); RED BLOOD CELL COUNT(AUTO) 3.17 MIL/uL (4.0-5.2); WHITE BLOOD COUNT (AUTO) 11.2 K/uL (4.3-11.0)
[2022-07-15] MEDS: LEVETIRACETAM SOL (5 ML) 100 MG/ML UDC GT SCH (09:05)
[2022-07-15] MEDS: PANTOPRAZOLE 40 MG/PACK PACK GT SCH (09:05)
[2022-07-15] MEDS: CLOTRIMAZOLE 1% 15 GM TUBE TP SCH (09:05)
[2022-07-15] MEDS: CHLORHEXIDINE GLUCONATE 15 ML UDC MM SCH (09:05)
[2022-07-15] MEDS: APIXABAN 2.5 MG TABLET GT SCH (09:06)
--- NOTE | 2022-07-15 09:30 | NUR ---
RN NOTES DUE MEDS GIVEN
[2022-07-15] MEDS ORDERED: LACT-209 GT (11:34)
[2022-07-15] MEDS ORDERED: METR500T GT (11:34)
[2022-07-15] MEDS ORDERED: LEVE100S GT ×2 (11:34)
[2022-07-15 12:00] VITALS: BP 100/63
--- NOTE | 2022-07-15 13:37 | NUR ---
RN NOTES REPORT GIVEN TO [facility] FACILITY STAFF
--- NOTE | 2022-07-15 13:49 | NUR ---
RN NOTES PATIENT TO BE DISCHARGED TO [facility] TODAY PER MD IN STABLE CONDITION. PROVIDED DC INSTRUCTIONS, MED RECON LIST AND HEALTH TEACHINGS. PATIENT TO FOLLOW UP WITH PCP PER FACILITY PROTOCOL. G TUBE IN PLACE. FLUSHED AND CLAMP. INTACT. PICC LINE REMOVED, PRESSURE AND DRESSING APPLIED NO BLEEDING. FERRERA CATH IN PLACE. DRAINING YELLOW COLORED URINE, 800 ML OUTPUT. PHOTOS OF SKIN ISSUES TAKEN AND PLACED IN CHART. PM CARE AND PRESCRIBED WOUND CARE AND SKIN CARE DONE EARLIER. TURNED AND REPOSITIONED. NO BELONGINGS. ALL PAPER WORKS SIGNED. AMBULANCE BRAKE LINING FINISHER ASBESTOS SCHEDULED AT 1430. REPORT GIVEN TO [facility] FACILITY STAFF EARLIER.
--- NOTE | 2022-07-15 15:40 | NUR ---
RN NOTES PATIENT PICKED UP BY AMBULANCE. TRANSFERRED OUT TO FACILITY
== END 2022-07-15 16:12 | DRG 720 ==
LOC: ER 12:31 → ICU 15:47 → TELE1 07-09 12:58
PROVIDERS: ADMIT Student in an Organized Health Care Education/Training Program; ATTEND Student in an Organized Health Care Education/Training Program
PROC: 5A1955Z Respiratory Ventilation, Greater than 96 Consecutive Hours (ICD-10-PCS; principal; 2022-07-03)
PROC: B548ZZA Ultrasonography of Superior Vena Cava, Guidance (ICD-10-PCS; 2022-07-03)
PROC: 02HV33Z Insertion of Infusion Device into Superior Vena Cava, Percutaneous Approach (ICD-10-PCS; 2022-07-03)
PROC: 0H89XZZ Division of Perineum Skin, External Approach (ICD-10-PCS; 2022-07-12)
DX: A41.9 Sepsis, unspecified organism (principal); J96.21 Acute and chronic respiratory failure with hypoxia; K72.00 Acute and subacute hepatic failure without coma; R65.21 Severe sepsis with septic shock; E43 Unspecified severe protein-calorie malnutrition; D68.59 Other primary thrombophilia; G93.41 Metabolic encephalopathy; E87.20 Acidosis, unspecified; H70.93 Unspecified mastoiditis, bilateral; I21.A1 Myocardial infarction type 2; Z93.0 Tracheostomy status; Z99.11 Dependence on respirator [ventilator] status; I48.91 Unspecified atrial fibrillation; Z20.822 Contact with and (suspected) exposure to COVID-19; N39.0 Urinary tract infection, site not specified; K60.3 Anal fistula; Z87.19 Personal history of other diseases of the digestive system; Z93.1 Gastrostomy status; Z86.718 Personal history of other venous thrombosis and embolism; Z79.01 Long term (current) use of anticoagulants; Z98.890 Other specified postprocedural states; D64.9 Anemia, unspecified; R74.01 Elevation of levels of liver transaminase levels; E87.6 Hypokalemia; R56.9 Unspecified convulsions; I47.1 Supraventricular tachycardia; N17.9 Acute kidney failure, unspecified; R13.10 Dysphagia, unspecified; J84.9 Interstitial pulmonary disease, unspecified
CPT/HCPCS: 31720; 36415; 36600; 70450-TC; 71045-TC; 74178; 80048-TC; 80053-TC; 80076-TC; 80202-TC; 81001; 82140-TC; 82728-TC; 82803-TC; 83540-TC; 83605-TC; 83735-TC; 84100-TC; 84439-TC; 84443-TC; 84484-TC; 85025-TC; 85730-TC; 87040-TC; 87081-TC; 87086-TC; 93307-TC; 94002-TC; 94003-TC; 94760-TC; 94762-TC; 94799-TC; 95819-TC; 99082-TC; A4216; A4623; A6253; A6403; A7526; C9803; G0378; G0480; J0692; J1450; J1650; J1953; J2185; J2310; J3370; J3475; J3480; J3490; J7030; J7042; J7050; J7060; Q9967